=== PATIENT | female | born 1990 | race Caucasian/White ===

== ENCOUNTER → 2017-03-26 10:23 | Outpatient (CLI) | payer BC, SELFPAY ==
--- NOTE | 2017-03-26 10:30 | US_ITS ---
US OB /maternal detail: INDICATION: ITS.REASON: 20 wk+ Anatomy Scan ORDERING PHYSICIAN: Tato Johnson MD PATIENT AGE: 26 years TECHNIQUE: ultrasound transabdominal scanning. COMPARISON: No previous relevant studies. FINDINGS: Single viable intrauterine gestation. cephalic position. Placenta: posterior placenta grade 1. There is average amount fluid. The cervix appears satisfactory. Closed and measuring 3 cm in length. Complete survey performed and was unremarkable on the submitted images as in PACS. No discrete anomalies identified on survey imaging by technologist. Active fetus. Three-vessel cord with satisfactory umbilical cord insertion. 4- chamber heart noted. Survey of brain & ventricles. Face and neck survey unremarkable. Diaphragm and chest views unremarkable. Abdomen: Both kidneys noted and unremarkable. Stomach noted and satisfactory. Spine: Survey of the spine satisfactory with no anomalies identified nor imaged. Both arms and legs noted. Amniotic Fluid: Adequate. Maternal adnexa: No significant findings. Measurements: Average ultrasound age 20w4d. Gestational Age 20w3d. Estimated due date by ultrasound age 0608/09/2017. Estimated weight 350 grams. This is 43rd percentile based on last menstrual period BPD = 21w1d OFD = 21w0d HC = 20w2d AC = 20w1d FL = 20w5d Heart Rate = 147 bpm Cerebellum = 20w4d Humerus = 21w3d HC/AC is 1.20 (1.09-1.26). CI is 79% (70-86%). FL/BPD is 68%. FL/AC is 23%. IMPRESSION: There is a single live fetus present in cephalic presentation with an average ultrasound age of 20 weeks 4 days and estimated due date of 08/09/2017. There has been adequate progression compared to the previous exam of 01/16/2017. The fetus is active with No obvious anomalies. Please see above for detail
== END ==
PROVIDERS: PCP Family Medicine; Visit Provider Nurse Practitioner Obstetrics & Gynecology
DX: Z36.0 Encounter for antenatal screening for chromosomal anomalies (principal)
CPT/HCPCS: 76811

== ENCOUNTER → 2017-04-16 11:25 | Outpatient (CLI) | payer BC, SELFPAY ==
[2017-04-16 11:53] LABS: Basophils % 0.3 % (0.1-2.0); Eosinophils # 0.3 K/mm3 (0.0-0.4); Eosinophils % 2.4 % (0.1-12.0); Hematocrit 37.2 % (37.0-47.0); Hemoglobin 11.8 g/dL (12.2-16.2); Mean Corpuscular HGB Conc 31.8 g/dL (31.8-35.4); Mean Corpuscular Hemoglobin 28.9 pg (27.0-31.2); Mean Platelet Volume 7.8 fl (7.4-10.4); Monocytes # 0.7 K/mm3 (0.1-1.0); Monocytes % 6.1 % (1.7-9.3); Neutrophils # 8.8 K/mm3 (1.8-7.8); Neutrophils % 74.1 % (37.0-80.0); Platelet Count 276 K/mm3 (142-424); Red Blood Count 4.09 M/mm3 (4.20-5.40); Red Cell Distribution Width 13.1 % (11.5-17.5); White Blood Count 11.8 K/mm3 (4.8-10.8)
[2017-04-16 12:13] LABS: Anion Gap 7.6 mEq/L (5-15); Blood Urea Nitrogen 13 mg/dL (7-18); Carbon Dioxide 27 mmol/L (21.0-32.0); Chloride 104 mmol/L (98-107); Creatinine,Serum 0.79 mg/dL (0.55-1.02); Estimated Glomerular Filt Rate 87 ml/min (>60); Free Thyroxine Index 3.2 ug/dL (5.93-13.13); GFR (African American) 106 ML/MIN (>60); Glucose 59 mg/dL (74-106); Potassium 3.6 mmoL/L (3.5-5.1); Sodium 135 mmol/L (136-145); T4 (Thyroxine) 13.5 ug/dl (4.7-13.3); Thyroid Stimulating Hormone 4.64 uIU/ml (0.358-3.740); Triiodothryronine (T3) Uptake 24 % (31-39)
== END ==
PROVIDERS: Visit Provider Physician Assistant
DX: R00.2 Palpitations (principal); Z3A.22 22 weeks gestation of pregnancy
CPT/HCPCS: 36415; 80048; 84436; 84443; 84479; 85025

== ENCOUNTER → 2017-04-20 10:17 | Outpatient (CLI) | payer BC, SELFPAY ==
--- NOTE | 2017-04-20 10:21 | CA_ITS ---
PROCEDURE: 2-D M-mode and color Doppler study INDICATIONS FOR THE TEST: Chest pain COPD Heart Murmur Tobacco Smoking Palpitations+ Fatigue Syncope Edema Hypertension Diabetes Mellitus Rheumatic Fever SOB [place] Obesity Hyperlipidemia Family History HD Additional History 24 WEEKS PATIENT INFORMATION HEIGHT: 70 WEIGHT:190 GENDER: Female B/P:136/70 2-D/M-MODE INTERPRETATION: 2-D MEASUREMENTS OBSERVED VALUES IN CMS Right Ventricular Dimension (RVDd) 2.6 Interventricular Septum (Thickness)(IVsd) 1.0 Left Ventricular Internal Dimensions(LVIDd) 4.9 Left Ventricular Posterior Wall (Thickness)(LVPWd) 0.9 Aortic Root 2.5 Aortic Cusp Separation 1.9 Left Atrial Dimensions (LAD) 3.4 2D 1. Left atrium is normal size, left ventricle is normal size, there is preserved left ventricular systolic function, visually estimated ejection fraction 55% with no obvious regional wall motion abnormality. 2. The right atrium and right ventricle are normal size and contractility. 3. The aortic, mitral and tricuspid valve are structurally normal. 4. The pulmonic valve is poorly visualized. 5. No significant pericardial effusion noted. DOPPLER INTERROGATION: Doppler interrogation of the aortic, mitral and tricuspid valvular presence of mild mitral and tricuspid regurgitation of no hemodynamic significance. Diastolic parameters are inconclusive. CONCLUSION: 1. Normal left ventricular size, preserved left ventricular systolic function, visually estimated ejection fraction 55% with no obvious regional wall motion abnormality. 2. Mild mitral and tricuspid regurgitation of no hemodynamic significance 3. No significant pericardial effusion noted.
== END ==
PROVIDERS: PCP Family Medicine; Visit Provider Internal Medicine
DX: R00.2 Palpitations (principal); Z3A.22 22 weeks gestation of pregnancy
CPT/HCPCS: 93306

== ENCOUNTER → 2017-05-02 19:58 | Outpatient (REF) | payer BC, SELFPAY | LOC: LAB 19:58 | PROVIDERS: Visit Provider Nurse Practitioner Family ==

== ENCOUNTER 2017-07-11 10:45 | Outpatient (CLI) | payer BC, SELFPAY ==
[2017-07-11 11:00] VITALS: BP 108/61; PULSE 92; RESP 20; TEMP 36.9; O2SAT 99; BMI 30.8
[2017-07-11 11:13] LABS: Appearance,Urine CLEAR (Clear); Bilirubin,Urine Negative (Negative); Blood, Urine Negative (Negative); Color,Urine YELLOW (Yellow); Glucose,Urine (UA) Negative (Negative); Ketones,Urine Negative (Negative); Leukocyte Esterase,Urine Negative (Negative); Microscopic, Urine URINE MICROSCOPIC (MICROSCOPIC); Nitrate,Urine Negative (Negative); PH,Urine 7.5 (5.0-8.5); Protein,Urine Negative (Negative); Urobilinogen,Urine 0.2 EU/dl (0.2)
[2017-07-11 11:23] LABS: Bacteria,Urine Trace /lpf; Mucus,Urine Trace /lpf; Squamous Epithelial Cell,Urine 20-50 #/hpf (0-5)
== END 2017-07-11 12:00 | disposition home or self-care (01) ==
LOC: OBOUT 10:49 → OB 10:57
PROVIDERS: PCP Family Medicine; Visit Provider Obstetrics & Gynecology
DX: O26.893 Other specified pregnancy related conditions, third trimester (principal); Z3A.35 35 weeks gestation of pregnancy; R06.02 Shortness of breath
CPT/HCPCS: 59025; 81001

== ENCOUNTER → 2017-07-18 19:32 | Outpatient (REF) | payer BC, SELFPAY | LOC: LAB 19:32 | PROVIDERS: Visit Provider Nurse Practitioner Obstetrics & Gynecology | DX: Z34.90 Encounter for supervision of normal pregnancy, unspecified, unspecified trimester (principal) | CPT/HCPCS: 86403 ==

== ENCOUNTER 2017-08-06 05:16 | Inpatient (IN) ==
[2017-08-06 06:01] LABS: Basophils % 0.3 % (0.1-2.0); Eosinophils # 0.3 K/mm3 (0.0-0.4); Hematocrit 38.4 % (37.0-47.0); Hemoglobin 11.9 g/dL (12.2-16.2); Lymphocytes # 2.1 K/mm3 (0.7-4.5); Lymphocytes % 13.1 K/mm3 (10-50); Mean Corpuscular Hemoglobin 25.4 pg (27.0-31.2); Mean Corpuscular Volume 81.9 fl (81-99); Mean Platelet Volume 7.7 fl (7.4-10.4); Monocytes # 0.9 K/mm3 (0.1-1.0); Monocytes % 5.7 % (1.7-9.3); Neutrophils # 12.6 K/mm3 (1.8-7.8); Neutrophils % 78.9 % (37.0-80.0); Platelet Count 274 K/mm3 (142-424); Red Blood Count 4.69 M/mm3 (4.20-5.40); Red Cell Distribution Width 16.1 % (11.5-17.5); White Blood Count 15.9 K/mm3 (4.8-10.8)
[2017-08-06 06:15] LABS: Lymphocytes % 9 % (10-50); Monocytes % 2 % (2-9); Neutrophils % 78 % (42-76); Total Cells Counted 100
[2017-08-06 06:16] LABS: Polychromasia 1+
--- NOTE | 2017-08-06 08:18 | Progress Note ---
Labor Note - Subjective: Date: 08/06/17 Time: 07:30 irregular contractions - Objective: NST:: Reactive Contractions:: infrequent Cervical Dilation:: 2 Effacement:: 50% Station: -2 Membranes: articially ruptured - Fetus: Monitoring?: Yes monitoring type:: External - Assessment: Labor progressing?: Yes Cephalopelvic disproportion?: No Patient Problems: All Active Problems Hyperthyroidism (Acute) Anemia affecting in third trimester (Acute) Palpitations (Acute) (Acute) - Plan: Anesthesia for epidural?: No Continue to labor down?: Yes Plan for ?: No Continue to monitor?: Yes Start pushing?: No Comment:: She is 2+ cm and I ruptured her membranes. There is copious clear fluid.
--- NOTE | 2017-08-06 08:20 | History & Physical Report ---
OB - H&P: HPI Antepartum - History of Present Illness Chief complaint: Term History of present illness: She is a 26-year-old 1 para 0 who was 39 weeks gestational age. She having occasional contractions and pressure. As result of this she will be delivered. - History of Present Criteria for establishing EDC:: LMP confirmed by 1st trimester US care: good care Ultrasounds: normal 1st trimester US, normal mid trimester US Obstetrical complications: none Medical complications: none [facility] History I have reviewed the patient's past medical history: Yes Medical History: Reports:: Palpitations Denies:: Asthma, Diabetes Mellitus Type 1, Diabetes Mellitus Type 2, Internal Pacemaker Other Surgeries: Yes: No Previous Surgery. No: , Pacemaker Amputation: No Fractures: No - *Social History Smoking Status: Former smoker Tobacco Type: cigarettes Alcohol Intake: never Alcohol Intake Frequency:: other Substance Use Type: denies use Occupational Status: employed Household Members: spouse *Family Hx:: Thyroid Disorder Para: 0 Review of Systems - Review of Systems Review of systems:: pertinent systems reviewed and negative unless documented below Meds Home Medications Medication Instructions Recorded Confirmed Type loratadine 10 mg tablet 10 mg PO DAILY tab 04/16/17 History 1 tab PO QHS 05/08/17 History vitamin,calcium,rwwqdrsi-yxfk-schrm acid tablet Allergies Allergy/AdvReac Type Severity Reaction Status Date / Time cephalexin [From Keflex] AdvReac Verified 07/31/17 08:20 OB - H&P: Exam - Physical Exam Vital signs: Temp Pulse Resp BP Pulse Ox 98.4 F 109 H 18 119/76 98 08/06/17 06:46 08/06/17 06:46 08/06/17 06:46 08/06/17 06:46 08/06/17 06:46 - Constitutional no acute distress - Routine HEENT Exam Head: Present: normocephalic - Routine Neck Exam Present: supple - Routine Respiratory Exam Comments: No respiratory distress - Routine Exam Comments: Her cervix is 2 cm 50% Station -2 OB - Results - Labs Labs: Short CBC 08/06/17 Range/Units 05:50 WBC 15.9 H (4.8-10.8) K/mm3 Hgb 11.9 L (12.2-16.2) g/dL Hct 38.4 (37.0-47.0) % Plt Count 274 (142-424) K/mm3 OB - A/P Antepartum (1) Normal delivery Current visit: Yes Status: Acute (2) Anemia affecting in third trimester Problem details: 12.20 Current visit: No Status: Acute - Additional Plan Planning to breastfeed?: Yes Plan: induction Additional Information:: She is 39 weeks and feeling a lot of pressure so we have elected to induce her labor.
--- NOTE | 2017-08-06 09:38 | Progress Note ---
Labor Note - Subjective: Date: 08/06/17 Time: 09:37 regular contraction - Objective: NST:: Reactive Contractions:: every 2-3 minutes Cervical Dilation:: 2 Effacement:: 75% Station: -2 Membranes: articially ruptured - Fetus: Monitoring?: Yes monitoring type:: Internal and External Comment:: I inserted and IUPC - Assessment: Labor progressing?: Yes Cephalopelvic disproportion?: No Patient Problems: All Active Problems Normal delivery (Acute) Hyperthyroidism (Acute) Anemia affecting in third trimester (Acute) Palpitations (Acute) (Acute) - Plan: Anesthesia for epidural?: No Continue to labor down?: Yes Plan for ?: No Continue to monitor?: Yes Start pushing?: No
[2017-08-06 12:02] LABS: Microscopic, Urine URINE MICROSCOPIC (MICROSCOPIC)
[2017-08-06 12:04] LABS: Appearance,Urine SL CLOUDY (Clear); Bilirubin,Urine Negative (Negative); Blood, Urine Negative (Negative); Color,Urine YELLOW (Yellow); Glucose,Urine (UA) Negative (Negative); Ketones,Urine Negative (Negative); Leukocyte Esterase,Urine Negative (Negative); Protein,Urine Negative (Negative); Specific Gravity, Urine 1.015 (1.005-1.030); Urobilinogen,Urine 0.2 EU/dl (0.2)
[2017-08-06 12:26] LABS: WBC,Urine Occasional #/hpf (0-3)
[2017-08-06 12:27] LABS: Amorphous Sediment,Urine 1+ /lpf; Bacteria,Urine 1+ /lpf; Squamous Epithelial Cell,Urine Occasional #/hpf (0-5)
--- NOTE | 2017-08-06 13:49 | Progress Note ---
Labor Note - Subjective: Date: 08/06/17 Time: 13:48 regular contraction - Objective: NST:: Reactive Contractions:: every 2-3 minutes Cervical Dilation:: 3 Effacement:: 90% Station: -2 Membranes: articially ruptured - Fetus: Monitoring?: Yes monitoring type:: Internal and External - Assessment: Labor progressing?: Yes Cephalopelvic disproportion?: No Patient Problems: All Active Problems Normal delivery (Acute) Hyperthyroidism (Acute) Anemia affecting in third trimester (Acute) Palpitations (Acute) (Acute) - Plan: Anesthesia for epidural?: Yes Continue to labor down?: Yes Plan for ?: No Continue to monitor?: Yes Start pushing?: No Comment:: She seems to be doing well. The nonstress test is reactive. She is having regular contractions. She has changed her cervix from 2-3. We will continue with expectant management.
--- NOTE | 2017-08-06 14:44 | Progress Note ---
[facility] Anesthesia Checklist - Patient Identification Patient Identification: Arm Band, Verbal (Name & ) - Structural Data Admitted From: Home Planned Operative Procedure/s: Labor Epidural Consent for Planned Operative Procedure(s) Verified: Yes Verified Documents: Surgical Consent, History and Physical - Additional verifications Patient : Yes Anesthesia Reactions: No - Airway Assessment C-Spine Mobility Assessed: Yes TMJ Mobility Assessed: Yes Dentition: Good Dentition - Neurological Assessment Level of Consciousness: Awake Hx Seizures: No Numbness or tingling in extremities: No - Anesthesia Plan Anesthesia Risk discussed: Yes Anesthesia Plan: Verified ASA Class: II Anesthesia Type: Epidural [facility] Anesthesia HX I have reviewed the patient's past medical history: Yes Medical History: Reports:: Gastroesophageal Reflux Disease(GERD), Palpitations Denies:: Asthma, Diabetes Mellitus Type 1, Diabetes Mellitus Type 2, Internal Pacemaker Other Surgeries: Yes: No Previous Surgery. No: , Pacemaker Amputation: No Fractures: No *Family Hx:: Thyroid Disorder
--- NOTE | 2017-08-06 15:55 | Progress Note ---
Labor Note - Subjective: Date: 08/06/17 Time: 15:54 regular contraction - Objective: NST:: Reactive Contractions:: every 2-3 minutes Cervical Dilation:: 3 Effacement:: 90% Station: -2 Membranes: articially ruptured - Fetus: Monitoring?: Yes monitoring type:: Internal and External - Assessment: Labor progressing?: No Cephalopelvic disproportion?: No Patient Problems: All Active Problems Normal delivery (Acute) Hyperthyroidism (Acute) Anemia affecting in third trimester (Acute) Palpitations (Acute) (Acute) - Plan: Anesthesia for epidural?: Yes Continue to labor down?: Yes Plan for ?: No Continue to monitor?: Yes Start pushing?: No Comment:: She really has not made much progress over the last couple of hours. We will see how she does over the next few hours. If she does make any further progress we will diagnose fetopelvic disproportion and make arranges for her to have a section.
--- NOTE | 2017-08-06 18:14 | Progress Note ---
Labor Note - Subjective: Date: 08/06/17 Time: 18:13 regular contraction - Objective: NST:: Reactive Contractions:: every 2-3 minutes Cervical Dilation:: 3-4 Effacement:: 90% Station: -1 Membranes: articially ruptured - Fetus: Monitoring?: Yes monitoring type:: Internal and External - Assessment: Labor progressing?: Yes Cephalopelvic disproportion?: No Patient Problems: All Active Problems Normal delivery (Acute) Hyperthyroidism (Acute) Anemia affecting in third trimester (Acute) Palpitations (Acute) (Acute) - Plan: Anesthesia for epidural?: Yes Continue to labor down?: Yes Plan for ?: No Continue to monitor?: Yes Start pushing?: No Comment:: The baby's head is come down a little more. The cervix is changed from 3-4 cm. The cervix is thinned out. We will continue to induce her. If she does not progress beyond this we will consider a .
--- NOTE | 2017-08-06 20:11 | Progress Note ---
Labor Note - Subjective: Date: 08/06/17 Time: 20:10 regular contraction - Objective: NST:: Reactive Contractions:: every 2-3 minutes Cervical Dilation:: 3-4 Effacement:: 90% Station: -1 Membranes: articially ruptured - Fetus: Monitoring?: Yes monitoring type:: External - Assessment: Labor progressing?: Yes Cephalopelvic disproportion?: No Patient Problems: All Active Problems Normal delivery (Acute) Hyperthyroidism (Acute) Anemia affecting in third trimester (Acute) Palpitations (Acute) (Acute) - Plan: Anesthesia for epidural?: Yes Continue to labor down?: Yes Plan for ?: No Continue to monitor?: Yes Start pushing?: No
[2017-08-06 20:14] LABS: Anion Gap 13.7 mEq/L (5-15); Calcium 8.1 mg/dL (8.5-10.1); Potassium 3.7 mmoL/L (3.5-5.1)
--- NOTE | 2017-08-06 21:40 | Operative Note ---
Date of procedure: 08/06/17 Pre-op Diagnosis:: Term , pelvic disproportion Post-op Diagnosis:: In , pelvic disproportion, uterine atony Procedure performed:: Primary lower segment transverse section and B Kelley suture Surgeon:: Tato Johnson MD Supervisor Accounting Clerks(s):: Dr. Ford PODIATRIC FOOT AND ANKLE SPECIALIST:: Joseph Aguilar Anesthesia: spinal Estimated blood loss (mL): 600 Clinical Note:: She is a 26-year-old 1 para 0 who was 39 weeks gestational age. She came in having a few contractions we elected to augment her labor. She was started on IV oxytocin and had her membranes ruptured. She really failed to progress beyond 3-4 cm. As result of that pelvic disproportion was diagnosed and she was taken for a primary lower segment transverse section. The risks and benefits of surgery were discussed with the patient and her prior to surgery. Operative findings:: She delivered a liveborn male child at 9:08 PM on the evening of August 06, 2017. The baby had Apgars of 9 at 1 minute and 10 at 5 minutes. PH of 7.42. Ovaries and tubes appeared normal. Umbilical cord appeared normal. Operative note:: She was taken to the operating room where epidural anesthesia was found be adequate. She was prepped and draped in normal sterile fashion in the supine position with a leftward tilt. A Vasquez catheter was in the bladder. A Pfannenstiel skin incision was made with knife then carried through to the underlying layer of fascia with cautery. The fascia was opened in the midline with cautery and extended laterally using Saeed scissors. Bernadette clamps were applied to the superior aspect of the fascial incision which was tented up and the underlying rectus muscles dissected off using cautery. The Bernadette clamps were then applied to the inferior aspect of the fascial incision which in a similar fashion was tented up and the underlying rectus muscles dissected off using cautery. The rectus muscles were then in the midline, the peritoneum identified, and entered sharply with Metzenbaum scissors. This incision was then extended superiorly and inferiorly with cautery. We had good visualization of the bladder inferiorly. The bladder peritoneum was then opened in the midline and extended laterally using Metzenbaum scissors. A bladder flap was created digitally. The lower blade of the Lamar was inserted so as to push the bladder out of the way. Transverse incision was made through the uterine muscle to the amnion. This incision was then extended laterally using fingers traction. The amnion was entered sharply with knife. The infant's head was then delivered atraumatically. This was followed by the anterior shoulder and the rest of the 's body atraumatically. The oropharynx and nasopharynx were bulb suctioned. The infant was then handed off to Dr. degroot who assigned Apgars of 9 at 1 minute and 10 at 5 minutes. We then obtained cord blood as well as cord pH. PH 7.42. Using gentle traction on the cord and countertraction on the fundus I was able to easily deliver the placenta intact. It had a normal three-vessel cord. The uterus was then cleared of clots and debris and exteriorized from the abdominal cavity. The uterine incision was then closed using running 0 Vicryl suture in a locked fashion. A second layer of the same suture was used to imbricate the first layer. The bladder peritoneum was then closed using running 2-0 Vicryl suture in a locked fashion. The uterus is quite boggy so I elected to place a B Kelley suture. I took a large bite anteriorly and then went over the posterior aspect of the uterus. I took 2 bites posteriorly and then came back over the anterior aspect of the uterus. I then took another bite anteriorly. The suture was then cinched down making sure that the suture was nowhere near the uterine cornua where the tubes started. The gutters and cul-de-sac were then cleared of clots and debris and the uterus was returned the abdominal cavity. Once again hemostasis was assured. The peritoneum was grasped with Karissa clamps and closed using running 2-0 Vicryl suture. The rectus muscles were then reapproximated using running 0 Vicryl suture. The fascia was closed using running #1 Vicryl suture. The subcutaneous tissues were then irrigated with warm water followed by closure Gene's fascia using running 2-0 Monocryl suture. The skin was closed with cesar. The skin was then cleaned with Hibiclens. Sterile dressings were applied. She tolerated the procedure well and was taken to the recovery room in excellent condition. All sponges minute and needle counts were correct. Estimate a blood loss was approximately 600 mL. Condition: stable Disposition: PACU Specimens:: None Complications:: None
--- NOTE | 2017-08-06 21:52 | Progress Note ---
[facility] Anesthesia Record Part I Intake, IV Amount: 850 Estimated blood loss (mL): 600 Urine output (mL): 50 Blood Products used (#): none Blood Pressure: 155/90 SaO2: 100 Pulse Rate: 103 Respiratory Rate: 20 Temperature: 97.4 F Patient is:: Awake, Stable Stable to PACU at:: 21:48
--- NOTE | 2017-08-06 21:52 | Progress Note ---
[facility] Anesthesia Record Part II Discharge Time: 22:18 Destination: Obstetric Gynecology Dept PACU nurse assessment reviewed?: Yes Patient Condition:: Good Anesthesia Complications:: None
[2017-08-07 06:03] LABS: Basophils % 0.1 % (0.1-2.0); Eosinophils # 0.1 K/mm3 (0.0-0.4); Eosinophils % 0.5 % (0.1-12.0); Hemoglobin 10.9 g/dL (12.2-16.2); Lymphocytes # 1.7 K/mm3 (0.7-4.5); Lymphocytes % 11.2 K/mm3 (10-50); Mean Corpuscular HGB Conc 30.1 g/dL (31.8-35.4); Mean Corpuscular Hemoglobin 24.7 pg (27.0-31.2); Mean Corpuscular Volume 82.1 fl (81-99); Monocytes # 0.9 K/mm3 (0.1-1.0); Monocytes % 5.9 % (1.7-9.3); Neutrophils # 12.8 K/mm3 (1.8-7.8); Neutrophils % 82.3 % (37.0-80.0); Platelet Count 231 K/mm3 (142-424); Red Blood Count 4.39 M/mm3 (4.20-5.40); Red Cell Distribution Width 16.1 % (11.5-17.5); White Blood Count 15.5 K/mm3 (4.8-10.8)
--- NOTE | 2017-08-07 07:29 | Pharmacy Consult Notes ---
[facility] Pharmacy VTE Monitoring - Patient Demographics Admission date: 08/06/17 Report Date: 08/07/17 Time: 07:29 Allergies/Adverse Reactions: Patient Allergies cephalexin [From Keflex] Adverse Reaction (Verified 07/31/17 08:20) Height: 1.78 m Weight: 102.058 kg Patient Problems: Current Active Problems Normal delivery (Acute) - VTE Risk Labs: VTE Related Lab Results Hgb 10.9 g/dL (12.2-16.2) L 08/07/17 05:20 Hct 36.0 % (37.0-47.0) L 08/07/17 05:20 Plt Count 231 K/mm3 (142-424) 08/07/17 05:20 BUN 10 mg/dL (7-18) 08/06/17 19:46 Creatinine 0.65 mg/dL (0.55-1.02) 08/06/17 19:46 Estimated Creat Clear 209 mL/min (0-300) 08/06/17 19:46 - Prophylaxis VTE Prophylaxis Ordered?: Yes Types of VTE Prophylaxis: IPCS Knee High Location of Applied Device: Bilateral Lower Extremeties - VTE Diagnosis Confirmed Treatment or plan recommended: Continue Current Treatment
--- NOTE | 2017-08-07 08:14 | Progress Note ---
Internal Medicine - PN: Subj *Date: 08/07/17 *Time: 08:13 Interval history: She is doing well this morning. She is eating and drinking and ambulating. She is breast-feeding. Her lochia is normal. Her incision is clean and dry. Exam Vital signs and Labs for Last 24 Hours: Temp Pulse Resp BP Pulse Ox 98.9 F 100 H 15 147/96 100 08/06/17 22:24 08/06/17 22:24 08/06/17 22:24 08/06/17 22:24 08/06/17 22:24 Laboratory Results - last 24 hr 08/06/17 05:50: Blood Type A Positive, Antibody Screen Negative 08/06/17 11:35: Urine Color Yellow, Urine Appearance Sl cloudy, Urine pH 7.0, Ur Specific [place] 1.015, Urine Protein Negative, Urine Glucose (UA) Negative, Urine Ketones Negative, Urine Blood Negative, Urine Nitrate Negative, Urine Bilirubin Negative, Urine Urobilinogen 0.2, Ur Leukocyte Esterase Negative, Urine RBC None, Urine WBC Occasional, Ur Squamous Epith Cells Occasional, Amorphous Sediment 1+, Urine Bacteria 1+ 08/06/17 19:46: Sodium 137, Potassium 3.7, Chloride 104, Carbon Dioxide 23, Anion Gap 13.7, BUN 10, Creatinine 0.65, Estimated Creat Clear 209, Estimated GFR 109, Est GFR ( Amer) 132, Glucose 95, Calcium 8.1 L 08/06/17 21:22: Cord ABG pH 7.42 08/07/17 05:20: WBC 15.5 H, RBC 4.39, Hgb 10.9 L, Hct 36.0 L, MCV 82.1, MCH 24.7 L, MCHC 30.1 L, RDW 16.1, Plt Count 231, MPV 8.0, Neut % (Auto) 82.3 H, Lymph % (Auto) 11.2, Person % (Auto) 5.9, Eos % (Auto) 0.5, Baso % (Auto) 0.1, Neut # (Auto) 12.8 H, Lymph # (Auto) 1.7, Person # (Auto) 0.9, Eos # (Auto) 0.1, Baso # (Auto) 0.0 I & O for Last 24 hours: Intake & Output 0608/05/17 08/06/17 08/07/17 11:59 11:59 11:59 11:59 Intake Total 850 / 850 Output Total 450 / 450 Balance 400 / 400 Weight 225 lb 225 lb - Constitutional no acute distress Assessment and Plan (1) Normal delivery Current visit: Yes Status: Acute Category: Medical Code(s): O80 - Encounter for full-term uncomplicated delivery (2) Anemia affecting in third trimester Problem details: 12.20 Current visit: No Status: Acute Category: Medical Code(s): O99.013 - Anemia complicating , third trimester (3) Fetopelvic disproportion, delivered Current visit: Yes Status: Acute Category: Medical Code(s): O33.9 - Maternal care for disproportion, unspecified - Assessment and plan all Dx Assessment and Plan for all problems:: She is doing well this morning. And we will plan to send her home in 48 hours.
[2017-08-07 08:17] LABS: Lymphocytes % 19 % (10-50); Monocytes % 5 % (2-9); Neutrophils % 76 % (42-76); Total Cells Counted 100
[2017-08-07 08:18] LABS: RBC Morphology Normal
--- NOTE | 2017-08-08 08:21 | Progress Note ---
Internal Medicine - PN: Subj *Date: 08/08/17 *Time: 08:20 Interval history: She is doing well this morning. She is eating and drinking and ambulating. She is breast-feeding. Her lochia is normal. Her incision is clean and dry. Exam Vital signs and Labs for Last 24 Hours: Temp Pulse Resp BP Pulse Ox 98.9 F 100 H 18 147/96 100 08/06/17 22:24 08/06/17 22:24 08/07/17 15:32 08/06/17 22:24 08/06/17 22:24 I & O for Last 24 hours: Intake & Output 08/05/17 08/06/17 08/07/17 08/08/17 11:59 11:59 11:59 11:59 Intake Total 850 / 850 Output Total 450 / 450 Balance 400 / 400 Weight 225 lb 225 lb - Constitutional no acute distress Assessment and Plan (1) Normal delivery Current visit: Yes Status: Acute Category: Medical Code(s): O80 - Encounter for full-term uncomplicated delivery (2) Anemia affecting in third trimester Problem details: 11. Current visit: No Status: Acute Category: Medical Code(s): O99.013 - Anemia complicating , third trimester (3) Fetopelvic disproportion, delivered Current visit: Yes Status: Acute Category: Medical Code(s): O33.9 - Maternal care for disproportion, unspecified - Assessment and plan all Dx Assessment and Plan for all problems:: She is doing well this morning. We will plan to send her home tomorrow.
--- NOTE | 2017-08-08 08:24 | Discharge Summary ---
General - General Admission date:: 08/06/17 Discharge date: 08/09/17 HPI HPI: She is a 26-year-old 1 now para 1 who is 39+ weeks gestational age. She was having pressure and discomfort so we elected to augment her labor. Hospital Course Hospital Course: She was started on the oxytocin had her membranes ruptured. She progressed to 3 -4 cm but really failed to progress beyond this point, despite adequate contractions all day long. As result of that she was taken for a primary lower segment transverse section for pelvic disproportion. She delivered by section liveborn male child at 9:08 PM in the evening of August 06, 2017. The baby weighed 8 lbs. 15 oz. and was 20-1/4 inches long. He had Apgars of 9 at 1 minute and 10 at 5 minutes. She has done well and has remained afebrile throughout her hospitalization. She is eating and drinking and ambulating. She is breast- feeding. She has a positive blood, she is rubella immune and was group B streptococcus negative. 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 Nunn. She is discharged home to follow-up with me in approximately 2 weeks. Objective Vital signs: Temp Pulse Resp BP Pulse Ox 98.9 F 100 H 18 147/96 100 08/06/17 22:24 08/06/17 22:24 08/07/17 15:32 08/06/17 22:24 08/06/17 22:24 no acute distress DS: Diagnosis - Discharge Diagnosis (1) Normal delivery Status: Acute (2) Anemia affecting in third trimester Status: Acute Problem details: 11.8 (3) Fetopelvic disproportion, delivered Status: Acute Discharge Plan - Patient Discharge Instructions ACTIVITY: No heavy lifting DIET: continue same diet - Follow up Plan Disposition: Home, Self-Nursing Home Medications: Home Medications Medication Instructions Recorded Confirmed Type loratadine 10 mg tablet 10 mg PO DAILY tab 04/16/17 08/06/17 History 1 tab PO QHS 05/08/17 08/06/17 History vitamin,calcium,ikmsirta-bzlj-uflkt acid tablet ferrous sulfate 325 mg (65 mg 325 mg PO DAILY 08/06/17 08/06/17 History iron) tablet,delayed release raNITIdine HCl [Ranitidine HCl] 150 mg PO BID 06/25/18 06/25/18 History Prescriptions/Medication Reconciliation: New Oxycodone HCl/Acetaminophen [Percocet 5/325mg tablet] 1 - 2 tab PO Q4- 6H PRN #30 tab PRN Reason: Severe Pain Continue vitamin,calcium,kjqwdcsm-huew-wtnub acid tablet 1 tab PO QHS loratadine 10 mg tablet 10 mg PO DAILY tab raNITIdine HCl [Ranitidine HCl] 150 mg PO BID No Action ferrous sulfate 325 mg (65 mg iron) tablet,delayed release 325 mg PO DAILY
== END 2017-08-09 11:06 | disposition home or self-care (01) ==
LOC: OB 05:16
PROVIDERS: ADMIT Obstetrics & Gynecology; ATTEND Nurse Practitioner Obstetrics & Gynecology

== ENCOUNTER → 2018-07-03 12:04 | Outpatient (CLI) | payer SELFPAY ==
--- NOTE | 2018-07-03 12:11 | XR_ITS ---
XR chest 2V HISTORY: Bronchitis, severe left-sided chest pain ITS.REASON: BRONCHITIS ORDERING PHYSICIAN: NADREW Gutiérrez PATIENT AGE: 27 years COMPARISON: None FINDINGS: The cardiomediastinal silhouette and pulmonary vascularity are within normal limits. The lungs are clear without infiltrates, suspicious nodules, or pleural effusions. No acute bony abnormalities. IMPRESSION: Negative chest, no acute finding
== END ==
PROVIDERS: PCP Family Medicine; Visit Provider Physician Assistant
DX: J40 Bronchitis, not specified as acute or chronic (principal)
CPT/HCPCS: 71046

== ENCOUNTER → 2019-04-09 14:04 | Outpatient (CLI) | payer OTHER, SELFPAY ==
[2019-04-09 14:59] LABS: Basophils # 0.1 K/mm3 (0-0.2); Basophils % 0.9 % (0.1-2.0); Eosinophils # 0.4 K/mm3 (0.0-0.4); Eosinophils % 5.1 % (0.1-12.0); Hemoglobin 12.7 g/dL (12.2-16.2); Lymphocytes # 2.5 K/mm3 (0.7-4.5); Lymphocytes % 29.9 % (10-50); Mean Corpuscular HGB Conc 31.9 g/dL (31.8-35.4); Mean Corpuscular Volume 84.6 fl (81-99); Monocytes # 0.4 K/mm3 (0.1-1.0); Monocytes % 5.2 % (1.7-9.3); Neutrophils # 4.8 K/mm3 (1.8-7.8); Neutrophils % 58.8 % (37.0-80.0); Platelet Count 339 K/mm3 (142-424); Red Blood Count 4.73 M/mm3 (4.20-5.40); White Blood Count 8.2 K/mm3 (4.8-10.8)
[2019-04-09 15:44] LABS: Chloride 101 mmol/L (98-107); Potassium 4.3 mmoL/L (3.5-5.1); Sodium 141 mmol/L (136-145)
[2019-04-09 15:46] LABS: Alanine Aminotransferase 14 U/L (12-78); Alkaline Phosphatase 59 U/L (38-126); Aspartate Amino Transferase 22 U/L (14-36); Bilirubin,Total 0.2 mg/dl (0.2-1.3); Blood Urea Nitrogen 16 mg/dl (7-17); Estimated Glomerular Filt Rate 74 ml/min (>60); GFR (African American) 90 ML/MIN (>60)
[2019-04-09 15:47] LABS: Albumin Level 4.2 g/dl (3.5-5.0); Albumin/Globulin Ratio 1.3 (1.1-1.8); Anion Gap 13.3 mEq/L (5-15); Calcium 9.5 mg/dl (8.4-10.2); Carbon Dioxide 31 mmol/L (22.0-30.0); Globulin 3.2 g/dL (1.3-3.2); Glucose 69 mg/dl (74-100); Total Protein,Serum 7.4 g/dl (6.3-8.2)
[2019-04-09 16:04] LABS: Free T4 (Free Thyroxine) 0.84 ng/dl (0.78-2.19)
[2019-04-11 10:15] LABS: Vitamin B12 545 pg/mL (232-1245); Vitamin D 25 Hydroxy 30.3 ng/mL (30.0-100.0)
== END ==
PROVIDERS: Visit Provider Physician Assistant
DX: J02.9 Acute pharyngitis, unspecified (principal); R53.83 Other fatigue
CPT/HCPCS: 36415; 80053; 82607; 82652; 84439; 84443; 85025

== ENCOUNTER 2019-06-24 13:20 | Outpatient (CLI) | payer OTHER, SELFPAY ==
[2019-06-24 13:26] VITALS: BMI 26.6
== END 2019-06-24 13:31 | disposition home or self-care (01) ==
PROVIDERS: PCP Family Medicine; Visit Provider Nurse Practitioner
DX: G43.909 Migraine, unspecified, not intractable, without status migrainosus (principal)

== ENCOUNTER → 2019-10-15 14:41 | Outpatient (CLI) | payer OTHER, SELFPAY ==
[2019-10-15 15:27] LABS: Basophils # 0.1 K/mm3 (0-0.2); Basophils % 0.9 % (0.1-2.0); Eosinophils # 0.5 K/mm3 (0.0-0.4); Eosinophils % 5.5 % (0.1-12.0); Hematocrit 42.2 % (37.0-47.0); Lymphocytes # 2.8 K/mm3 (0.7-4.5); Lymphocytes % 28.7 % (10-50); Mean Corpuscular HGB Conc 33.1 g/dL (31.8-35.4); Mean Corpuscular Hemoglobin 27.5 pg (27.0-31.2); Mean Corpuscular Volume 83.3 fl (81-99); Mean Platelet Volume 7.5 fl (7.4-10.4); Monocytes # 0.5 K/mm3 (0.1-1.0); Monocytes % 5.1 % (1.7-9.3); Neutrophils # 5.9 K/mm3 (1.8-7.8); Neutrophils % 59.8 % (37.0-80.0); Platelet Count 292 K/mm3 (142-424); Red Blood Count 5.07 M/mm3 (4.20-5.40); Red Cell Distribution Width 13.3 % (11.5-17.5); White Blood Count 9.9 K/mm3 (4.8-10.8)
[2019-10-15 15:52] LABS: Strep Scrn Group A (Rapid) Negative (Negative)
[2019-10-17 13:22] LABS: Covid-19 Nasal PCR Sendout Lex NOT DETECTED
== END ==
PROVIDERS: PCP Family Medicine; Visit Provider Nurse Practitioner Family
DX: Z03.818 Encounter for observation for suspected exposure to other biological agents ruled out (principal)
CPT/HCPCS: 36415; 85025; 87430; U0004

== ENCOUNTER → 2019-12-08 11:12 | Outpatient (CLI) | payer OTHER, SELFPAY ==
--- NOTE | 2019-12-08 11:16 | US_ITS ---
PROCEDURE: US OB TRANSVAGINAL CLINICAL INDICATION: Confirm dates, viability, rule out etopic,RLQP COMPARISON: US OBFEMAT US OB /maternal detail from 03/26/2017 FINDINGS: The uterus is retroverted. There is a small gestational sac present with a yolk sac noted. No obvious pole is evident at this time. The adnexa are unremarkable. No cul-de-sac fluid. IMPRESSION: There is an intrauterine gestational sac with yolk sac but no obvious pole. Cannot confirm viability at this time. Recommend follow-up ultrasound as well as correlation with beta HCG. Retroverted uterus Dictated by: Mark Mancilla MD 12/08/2019 16:20 Mark Mancilla MD in [facility] 12/08/2019 16:20
[2019-12-08 13:13] LABS: HCG,Quantitative 9349 mIU/ml (0-5.42)
== END ==
PROVIDERS: PCP Family Medicine; Visit Provider Nurse Practitioner Obstetrics & Gynecology
DX: O26.841 Uterine size-date discrepancy, first trimester (principal); R10.9 Unspecified abdominal pain; Z34.90 Encounter for supervision of normal pregnancy, unspecified, unspecified trimester
CPT/HCPCS: 36415; 76817; 84702

== ENCOUNTER → 2019-12-11 12:07 | Outpatient (CLI) | payer OTHER, SELFPAY ==
[2019-12-11 12:57] LABS: HCG,Quantitative 13876 mIU/ml (0-5.42)
== END ==
PROVIDERS: Visit Provider Nurse Practitioner Obstetrics & Gynecology
DX: Z34.90 Encounter for supervision of normal pregnancy, unspecified, unspecified trimester (principal)
CPT/HCPCS: 36415; 84702

== ENCOUNTER → 2019-12-15 15:00 | Outpatient (CLI) | payer OTHER, SELFPAY ==
--- NOTE | 2019-12-15 15:01 | US_ITS ---
PROCEDURE: US OB <= 14 WEEKS FETUS CLINICAL INDICATION: dates and viability COMPARISON: US US OB TRANSVAGINAL from 12/08/2019 FINDINGS: An intrauterine gestational sac is present with a pole with a crown-rump length of 0.67cm correlating to gestational age of 6weeks 4days. Heart flicker is felt to be present however definite heart rate is difficult to assess. Recommend follow-up exam to confirm viability. IMPRESSION: Live IUP at 6 weeks 4 days. Heart tones are difficult to evaluate. Heart flicker is felt to be present. Recommend follow-up exam for confirmation. Estimated due date by Ultrasound is 08/05/2020 Dictated by: Mark Mancilla MD 12/15/2019 18:14 Mark Mancilla MD in [facility] 12/15/2019 18:14
[2019-12-16 10:35] LABS: Adenovirus,PCR Not Detected (NotDetected); Bordetella Pertussis Not Detected (NotDetected); Chlamydophila Pneumoniae, PCR Not Detected (NotDetected); Coronavirus 19, PCR Not Detected (NotDetected); Coronavirus 229E Not Detected (NotDetected); Coronavirus NL63 Not Detected (NotDetected); Coronavirus OC43 Not Detected (NotDetected); Coronovirus HKU1,PCR Not Detected (NotDetected); Human Metapneumovirus Not Detected (NotDetected); Influenza A, PCR Not Detected (NotDetected); Influenza AH1, 2009 Not Detected (NotDetected); Influenza AH1, PCR Not Detected (NotDetected); Influenza AH3,PCR Not Detected (NotDetected); Influenza B, PCR Not Detected (NotDetected); Mycoplasma Pneumoniae, PCR Not Detected (NotDetected); Parainfluenza 1, PCR Not Detected (NotDetected); Parainfluenza 2, PCR Not Detected (NotDetected); Parainfluenza 3, PCR Not Detected (NotDetected); Parainfluenza 4, PCR Not Detected (NotDetected); Respiratory Syncytial Virus Not Detected (NotDetected); Rhinovirus/Enterovirus Not Detected (NotDetected)
== END ==
LOC: RAD 15:55 → COVID.OUT 15:56
PROVIDERS: PCP Family Medicine; Visit Provider Nurse Practitioner Obstetrics & Gynecology
DX: Z34.90 Encounter for supervision of normal pregnancy, unspecified, unspecified trimester (principal)
CPT/HCPCS: 76801; 87581; 87633; 87798; U0003; U0004

== ENCOUNTER → 2019-12-25 13:27 | Outpatient (CLI) | payer OTHER, SELFPAY ==
--- NOTE | 2019-12-25 13:27 | US_ITS ---
PROCEDURE: US OB <= 14 WEEKS FETUS CLINICAL INDICATION: Confirm viability and confirmation of COMPARISON: US US OB <= 14 WEEKS FETUS from 12/15/2019 FINDINGS: An intrauterine gestational sac is present with a pole with a crown-rump length of 0.47cm correlating to gestational age of 6weeks 2days. No adnexal mass or cul-de-sac fluid. IMPRESSION: There is an intrauterine gestational sac with a pole which measures 0.4 cm correlating to gestational age of 6 weeks and 2 days. Cardiac activity however is not identified. Cannot confirm viability at this time. Continued follow-up is suggested. Estimated due date by Ultrasound is 08/17/2020 based on today's measurements. The measurements previously estimated a due date of 08/05/2020. Dictated by: Mark Mancilla MD 12/25/2019 18:15 Mark Mancilla MD in [facility] 12/25/2019 18:15
== END ==
PROVIDERS: PCP Family Medicine; Visit Provider Nurse Practitioner Obstetrics & Gynecology
DX: O26.841 Uterine size-date discrepancy, first trimester (principal)
CPT/HCPCS: 76801

== ENCOUNTER → 2020-01-14 10:39 | Outpatient (CLI) | payer OTHER, SELFPAY ==
--- NOTE | 2020-01-14 10:44 | XR_ITS ---
PROCEDURE: XR CHEST PORTABLE CLINICAL HISTORY: COVID OUTPATIENT COMPARISON: No exams were available for comparison FINDINGS: The cardiomediastinal silhouette and pulmonary vascularity are within normal limits. The lungs are clear without infiltrates, suspicious nodules, or pleural effusions. No acute bony abnormalities. IMPRESSION: No acute findings. Dictated by: Mark Mancilla MD 01/14/2020 15:30 Mark Mancilla MD in [facility] 01/14/2020 15:30
[2020-01-14 12:45] LABS: Basophils # 0.1 K/mm3 (0-0.2); Basophils % 1.1 % (0.1-2.0); Eosinophils # 0.6 K/mm3 (0.0-0.4); Eosinophils % 6.8 % (0.1-12.0); Hemoglobin 13.3 g/dL (12.2-16.2); Lymphocytes # 2.8 K/mm3 (0.7-4.5); Lymphocytes % 31.4 % (10-50); Mean Corpuscular HGB Conc 31.7 g/dL (31.8-35.4); Mean Corpuscular Hemoglobin 27.4 pg (27.0-31.2); Mean Corpuscular Volume 86.3 fl (81-99); Monocytes # 0.5 K/mm3 (0.1-1.0); Monocytes % 5.3 % (1.7-9.3); Neutrophils # 4.9 K/mm3 (1.8-7.8); Neutrophils % 55.5 % (37.0-80.0); Platelet Count 323 K/mm3 (142-424); Red Blood Count 4.87 M/mm3 (4.20-5.40); Red Cell Distribution Width 13.2 % (11.5-17.5); White Blood Count 8.8 K/mm3 (4.8-10.8)
[2020-01-14 13:03] LABS: Strep Scrn Group A (Rapid) Negative (Negative)
[2020-01-15 10:02] LABS: Covid-19 Nasal PCR Sendout Lex NOT DETECTED
== END ==
PROVIDERS: PCP Family Medicine; Visit Provider Nurse Practitioner Family
DX: Z03.818 Encounter for observation for suspected exposure to other biological agents ruled out (principal)
CPT/HCPCS: 36415; 71045; 85025; 87430; U0004

== ENCOUNTER → 2020-02-16 11:00 | Outpatient (CLI) | payer OTHER, SELFPAY | PROVIDERS: PCP Family Medicine; Visit Provider Family Medicine | DX: Z11.52 Encounter for screening for COVID-19 (principal) | CPT/HCPCS: U0003 ==

== ENCOUNTER → 2020-02-27 11:58 | Outpatient (CLI) | payer OTHER, SELFPAY | PROVIDERS: PCP Physician Assistant; Visit Provider Physician Assistant | DX: Z20.822 Contact with and (suspected) exposure to COVID-19 (principal) | CPT/HCPCS: U0003 ==

== ENCOUNTER → 2020-04-27 14:22 | Outpatient (CLI) | payer OTHER, SELFPAY ==
[2020-04-27 16:39] LABS: HCG,Quantitative 64 mIU/ml (0-5.42)
== END ==
PROVIDERS: Visit Provider Nurse Practitioner Obstetrics & Gynecology
DX: Z32.00 Encounter for pregnancy test, result unknown (principal)
CPT/HCPCS: 36415; 84702

== ENCOUNTER → 2020-05-10 08:58 | Outpatient (CLI) | payer OTHER, SELFPAY ==
[2020-05-10 10:01] LABS: HCG,Quantitative 8255 mIU/ml (0-5.42)
== END ==
PROVIDERS: Visit Provider Nurse Practitioner Obstetrics & Gynecology
DX: Z34.90 Encounter for supervision of normal pregnancy, unspecified, unspecified trimester (principal)
CPT/HCPCS: 36415; 84702

== ENCOUNTER → 2020-05-20 08:29 | Outpatient (CLI) | payer OTHER, SELFPAY ==
--- NOTE | 2020-05-20 08:29 | US_ITS ---
PROCEDURE: US OB <= 14 WEEKS FETUS CLINICAL INDICATION: for dates COMPARISON: US US OB <= 14 WEEKS FETUS from 12/25/2019 FINDINGS: An intrauterine gestational sac is present with a pole with a crown-rump length of 1.07cm correlating to gestational age of 7weeks 2days. heart tones are present with an FHR of 134bpm. Yolk sac is noted. Incidental note is is made of 1.9 cm right ovarian cyst IMPRESSION: Live IUP at 7 weeks 2 days Estimated due date by Ultrasound is 01/04/2021 Dictated by: Mark Mancilla MD 05/20/2020 14:21 Mark Mancilla MD in [facility] 05/20/2020 14:21
== END ==
PROVIDERS: PCP Family Medicine; Visit Provider Nurse Practitioner Obstetrics & Gynecology
DX: Z34.90 Encounter for supervision of normal pregnancy, unspecified, unspecified trimester (principal)
CPT/HCPCS: 76801

== ENCOUNTER 2020-05-21 13:41 | Emergency (ER) | payer OTHER, SELFPAY ==
[2020-05-21 13:53] VITALS: BP 137/82; PULSE 73; RESP 16; TEMP 37; O2SAT 98; BMI 27.9
[2020-05-21 14:26] LABS: Microscopic, Urine URINE MICROSCOPIC (MICROSCOPIC)
[2020-05-21 14:27] LABS: Appearance,Urine CLEAR (Clear); Bilirubin,Urine Negative (Negative); Blood, Urine Negative (Negative); Color,Urine YELLOW (Yellow); Glucose,Urine (UA) Negative (Negative); Ketones,Urine 1+ (Negative); Leukocyte Esterase,Urine Negative (Negative); Nitrate,Urine Negative (Negative); PH,Urine 6.5 (5.0-8.5); Protein,Urine Negative (Negative); Specific Gravity, Urine 1.025 (1.005-1.030); Urobilinogen,Urine 0.2 EU/dl (0.2)
[2020-05-21 14:29] LABS: Basophils % 0.4 % (0.1-2.0); Eosinophils # 0.1 K/mm3 (0.0-0.4); Eosinophils % 1.2 % (0.1-12.0); Hematocrit 42.8 % (37.0-47.0); Hemoglobin 13.5 g/dL (12.2-16.2); Lymphocytes # 1.9 K/mm3 (0.7-4.5); Lymphocytes % 16.3 % (10-50); Mean Corpuscular HGB Conc 31.5 g/dL (31.8-35.4); Mean Corpuscular Hemoglobin 26.9 pg (27.0-31.2); Mean Corpuscular Volume 85.2 fl (81-99); Monocytes # 0.5 K/mm3 (0.1-1.0); Monocytes % 4.3 % (1.7-9.3); Neutrophils % 77.8 % (37.0-80.0); Platelet Count 323 K/mm3 (142-424); Red Blood Count 5.02 M/mm3 (4.20-5.40); Red Cell Distribution Width 12.9 % (11.5-17.5); White Blood Count 11.6 K/mm3 (4.8-10.8)
[2020-05-21 14:30] LABS: Chloride 103 mmol/L (98-107)
[2020-05-21 14:31] LABS: Potassium 3.8 mmoL/L (3.5-5.1); Sodium 137 mmol/L (136-145)
[2020-05-21 14:33] LABS: Alanine Aminotransferase 15 U/L (12-78); Aspartate Amino Transferase 30 U/L (14-36); Blood Urea Nitrogen 15 mg/dl (7-17); Creatinine Clearance Estimated 191 mL/min (50-200); Estimated Glomerular Filt Rate 117 ml/min (>60); GFR (African American) 142 ML/MIN (>60)
[2020-05-21 14:34] LABS: Albumin/Globulin Ratio 1.5 (1.1-1.8); Alkaline Phosphatase 61 U/L (38-126); Anion Gap 11.8 mEq/L (5-15); Bilirubin,Total 0.4 mg/dl (0.2-1.3); Calcium 9.8 mg/dl (8.4-10.2); Carbon Dioxide 26 mmol/L (22.0-30.0); Globulin 3.3 g/dL (1.3-3.2); Glucose 100 mg/dl (74-100); Total Protein,Serum 8.3 g/dl (6.3-8.2)
--- NOTE | 2020-05-21 15:24 | HMH.EDNVD ---
ED Disposition Clinical Impression: Hyperemesis gravidarum Disposition: Home, Self-Care Condition on Discharge: Good Instructions: DI for Hyperemesis Gravidarum Additional Instructions: Use the Phenergan prescribed by your OB for nausea and vomiting and increase oral hydration. Return to the ED for any new or worsening symptoms. Referrals: Dilshad Nunn MD [Primary Care Provider] - Forms: Work/School Release Time of Disposition: 16:24 - Critical Care Critical Care Time: No Attestation: On 05/21/20, the high probability of a clinically significant, sudden or life threatening deterioration of the following system(s) required my full and direct attention, intervention and personal management. The time I documented below is in addition to time spent performing reported procedures but includes the following listed in this critical care notation. Medical Decision Making - Medical Records Medical records reviewed: Yes: I reviewed the patient's medical records. - Kameron Inquiry Pt receiving controlled substance: No Vital Signs: 05/21/20 13:53 05/21/20 15:36 05/21/20 16:43 Temperature 98.6 F 98 F Temperature Source Oral Oral Pulse Rate 75 78 Pulse Rate [Radial] 73 Respiratory Rate 16 16 Blood Pressure 120/73 117/64 Blood Pressure [Right Arm] 137/82 Blood Pressure Mean [Right Arm] 100 Blood Pressure Source Automatic Cuff Blood Pressure Position Sitting Sitting Blood Pressure Position [Right Arm] Sitting 02 Sat by Pulse Oximetry 98 100 Oxygen Delivery Method Room Air Room Air Room Air - Lab Data Lab Results 05/21/20 14:15: Urine Color Yellow, Urine Appearance Clear, Urine pH 6.5, Ur Specific [place] 1.025, Urine Protein Negative, Urine Glucose (UA) Negative, Urine Ketones 1+, Urine Blood Negative, Urine Nitrate Negative, Urine Bilirubin Negative, Urine Urobilinogen 0.2, Ur Leukocyte Esterase Negative, Urine RBC None, Urine WBC 3-5, Ur Squamous Epith Cells 3-5, Urine Bacteria None 05/21/20 14:15: WBC 11.6 H, RBC 5.02, Hgb 13.5, Hct 42.8, MCV 85.2, MCH 26.9 L, MCHC 31.5 L, RDW 12.9, Plt Count 323, MPV 7.0 L, Neut % (Auto) 77.8, Lymph % (Auto) 16.3, [place] % (Auto) 4.3, Eos % (Auto) 1.2, Baso % (Auto) 0.4, Neut # (Auto) 9.0 H, Lymph # (Auto) 1.9, [place] # (Auto) 0.5, Eos # (Auto) 0.1, Baso # (Auto) 0.0 05/21/20 14:15: Sodium 137, Potassium 3.8, Chloride 103, Carbon Dioxide 26, Anion Gap 11.8, BUN 15, Creatinine 0.60, Estimated Creat Clear 191, Estimated GFR 117, Est GFR ( Amer) 142, Glucose 100, Calcium 9.8, Total Bilirubin 0.4, AST 30, ALT 15, Alkaline Phosphatase 61, Total Protein 8.3 H, Albumin 5.0, Globulin 3.3 H, Albumin/Globulin Ratio 1.5 Result diagrams: 05/21/20 14:15 05/21/20 14:15 Orders (Tests/Meds): ED MEDICATIONS Discontinued Medications Generic Name Dose Route Start Last Admin Trade Name Freq PRN Reason Stop Dose Admin Lactated Ringer's 1,000 mls @ 999 mls/hr 05/21/20 14:30 Lactated Ringer's 1000 Ml Bag IV 05/21/20 15:30 .[id number] JAMIE Promethazine HCl 25 mg 05/21/20 14:58 05/21/20 15:17 Promethazine Hcl 25mg/Ml 1ml Vial IV 05/21/20 14:59 25 mg ONCE ONE Administration Sodium Chloride 10 ml 05/21/20 14:20 Sodium Chloride 0.9% 10ml Flush Syringe IV 05/22/20 02:21 NEEDED PRN Maintain IV Site Sodium Chloride 25 ml 05/21/20 14:58 Sodium Chloride 0.9% 25ml Bag IV 05/21/20 14:59 ONCE ONE Medical Decision Narrative: 29-year-old female who presents 8 weeks with acute vomiting with history of hyperemesis gravidarum. Patient was given IV Phenergan and IV fluid bolus with laboratory data obtained. Urinalysis does not demonstrate urinary tract infection. Patient is not having bleeding and therefore will not require RhoGam her type and screen. Patient is having no vaginal discharge or urinary symptoms therefore low concern for infectious pathology. Patient is established with OB and has spoken with them regardin
[2020-05-21 15:36] VITALS: BP 120/73; PULSE 75; O2SAT 100
[2020-05-21 16:43] VITALS: BP 117/64; PULSE 78; RESP 16; TEMP 36.6; O2SAT 98
== END 2020-05-21 16:44 | disposition home or self-care (01) ==
PROVIDERS: Emergency Provider Student in an Organized Health Care Education/Training Program; PCP Family Medicine
DX: O21.0 Mild hyperemesis gravidarum (principal); K21.9 Gastro-esophageal reflux disease without esophagitis
CPT/HCPCS: 80053; 81001; 85025; 96365; 96367; 99282

== ENCOUNTER → 2020-06-08 08:59 | Outpatient (CLI) | payer OTHER, SELFPAY ==
[2020-06-08 09:15] LABS: Basophils % 0.4 % (0.1-2.0); Eosinophils # 0.3 K/mm3 (0.0-0.4); Eosinophils % 3.1 % (0.1-12.0); Hematocrit 38.6 % (37.0-47.0); Hemoglobin 12.5 g/dL (12.2-16.2); Lymphocytes % 21.4 % (10-50); Mean Corpuscular HGB Conc 32.4 g/dL (31.8-35.4); Mean Corpuscular Hemoglobin 27.5 pg (27.0-31.2); Mean Corpuscular Volume 84.9 fl (81-99); Mean Platelet Volume 7.6 fl (7.4-10.4); Monocytes # 0.5 K/mm3 (0.1-1.0); Neutrophils # 6.7 K/mm3 (1.8-7.8); Neutrophils % 70.1 % (37.0-80.0); Platelet Count 273 K/mm3 (142-424); Red Blood Count 4.55 M/mm3 (4.20-5.40); Red Cell Distribution Width 13.4 % (11.5-17.5); White Blood Count 9.5 K/mm3 (4.8-10.8)
[2020-06-09 10:13] LABS: Rapid Plasma Reagin Ab Titer Non Reactive (NonRea<1:1)
[2020-06-09 15:14] LABS: HIV Screen 4th Generation wRfx Non Reactive (Non Reactive); Hepatitis B Surface Antigen Negative (Negative); Hepatitis C Antibody <0.1 s/co ratio (0.0-0.9); Rubella Antibodies, IgG 4.93 index (Immune >0.99)
== END ==
PROVIDERS: Visit Provider Nurse Practitioner Obstetrics & Gynecology
DX: Z34.90 Encounter for supervision of normal pregnancy, unspecified, unspecified trimester (principal); Z3A.01 Less than 8 weeks gestation of pregnancy
CPT/HCPCS: 85025; 86592; 86703; 86762; 86850; 87340; 87380; G0432

== ENCOUNTER → 2020-08-06 11:37 | Outpatient (CLI) | payer OTHER, SELFPAY | PROVIDERS: PCP Family Medicine; Visit Provider Internal Medicine Cardiovascular Disease | DX: R00.2 Palpitations (principal) | CPT/HCPCS: 93225 ==

== ENCOUNTER 2020-08-12 12:16 | Emergency (ER) | payer OTHER, SELFPAY ==
[2020-08-12 12:20] VITALS: BP 123/74; PULSE 79; RESP 18; TEMP 37; O2SAT 98; BMI 28.3
--- NOTE | 2020-08-12 12:38 | HMH.EDUTC ---
[facility] [place] Disposition Clinical Impression: Sinusitis Qualifiers: Sinusitis location: unspecified location Chronicity: unspecified Qualified Code(s): J32.9 - Chronic sinusitis, unspecified Disposition: Home, Self-Care Condition on Discharge: Good Instructions: Sinusitis, DI for Sinusitis, Azithromycin, Fluticasone Nasal [place] Additional Instructions: *Monitor Temp, Over the counter Motrin or Tylenol as directed/as needed Tylenol every 4 hours and Motrin every 6 hours (as long as your family doctor has told you that you can take it) for fever or pain. and straight to ER if unable to lower temp less than 101.0 after medication given *Warm salt water gargles may help to soothe the throat *Throat Lozenges *Warm fluids like tea with honey may help to soothe the throat *Sleep elevated *Humidifier/Vaporizer *Flonase 2 sprays in each nostril daily but be aware that it may take 2-3 days before you notice improvement Take medication as prescribed Check with your pharmacy Claritan may help with allergy symptoms but make sure to always check with your pharmacy before taking any medication during Follow up IMMEDIATELY for new or worsening symptoms or no Noticeable improvement over the next 48-72 hours. 911 for difficulty breathing or swallowing Prescriptions: Fluticasone Propionate [Flonase 50mcg nasal spray 16gm] 1 spr NS DAILY #1 bottle Transmission Status: Pending to [facility] Azithromycin [Z-Jaydon 250mg Tab] 250 mg PO DIRECTED #6 tab Transmission Status: Pending to [facility] Referrals: Dilshad Nunn MD [Primary Care Provider] - As needed Time of Disposition: 12:57 Medical Decision Making - Kameron Inquiry Pt receiving controlled substance: No Kameron was queried for this patient: No Vital Signs: 08/12/20 12:20 Temperature 98.6 F Temperature Source Oral Pulse Rate [Right Brachial] 79 Respiratory Rate 18 Blood Pressure [Right Arm] 123/74 Blood Pressure Mean [Right Arm] 90 Blood Pressure Source [Right Arm] Automatic Cuff Blood Pressure Position [Right Arm] Sitting 02 Sat by Pulse Oximetry 98 Oxygen Delivery Method Room Air Medical Decision Narrative: Medication verified by pharmacy safe for use during [facility] [place] HPI - General Stated complaint: sinud congestion, ear pain Time Seen by Provider: 08/12/20 12:38 Mode of Arrival: Ambulatory Source of Information: Patient Limitations: No Limitations Description of Symptoms (Recalled from Triage Doc. by RN): PATIENT C/O BILATERAL EAR PAIN, COUGH, HEADACHE, SINUS PRESSURE X 5 DAYS HEENT Symptoms (Recalled from RN notes): Yes Resp Symptoms (Recalled from RN notes): Yes Skin Symptoms (Recalled from RN notes): No MS Symptoms (Recalled from RN notes): No Functional Status (Recalled from RN notes): WNL - History of Present Illness Provider Complaint: Patient states that she has been having sinus pain and pressure, bilateral ear pain, cough and headache for about a week States that she has been taking Tylenol sinus but hasnt helped States that she is 20wks OB - Related Data Home Medications Medication Instructions Recorded Confirmed vits no.130-ferrous fum 1 tab PO DAILY tab 08/06/20 08/12/20 27 mg iron-folic acid 800 mcg tablet sertraline 100 mg tablet 100 mg PO DAILY tab 08/06/20 08/12/20 Previous Rx's Medication Instructions Recorded Azithromycin [Z-Jaydon 250mg Tab] 250 mg PO DIRECTED #6 tab 08/12/20 Fluticasone Propionate [Flonase 1 spr NS DAILY #1 bottle 08/12/20 50mcg nasal spray 16gm] Allergies Allergy/AdvReac Type Severity Reaction Status Date / Time cephalexin [From Keflex] AdvReac Verified 08/06/20 11:01 - Worker's Comp Is this a Worker's Comp case?: No H History - Hepatitis A Screen Drug use history?: No High risk sexual behaviors?: No History of sexually transmitted infection?: No Currently employed?: No Childcare worker?: No Do you have indoor nessa
[2020-08-12 13:00] VITALS: BP 123/74; PULSE 79; RESP 18; TEMP 37; O2SAT 98
== END 2020-08-12 13:03 | disposition home or self-care (01) ==
PROVIDERS: Emergency Provider Nurse Practitioner; PCP Family Medicine
DX: J32.9 Chronic sinusitis, unspecified (principal); Z3A.20 20 weeks gestation of pregnancy

== ENCOUNTER → 2020-08-18 10:31 | Outpatient (CLI) | payer OTHER, SELFPAY ==
--- NOTE | 2020-08-18 10:31 | US_ITS ---
PROCEDURE: US OB >= 14 WEEKS FETUS CLINICAL INDICATION: OB complete Anatomy exam COMPARISON: US US OB <= 14 WEEKS FETUS from 05/20/2020 FINDINGS: Single viable intrauterine gestation. Cephalic position. Placenta: Posterior,placenta grade 1. There is average amount fluid. Complete survey performed and was unremarkable on the submitted images as in PACS. No discrete anomalies identified on survey imaging by technologist. Active fetus. Three-vessel cord with satisfactory umbilical cord insertion. 4- chamber heart noted. Survey of brain & ventricles Unremarkable. Face and neck survey unremarkable. Diaphragm and chest views unremarkable. Abdomen: Both kidneys noted and unremarkable. Stomach noted and satisfactory. Spine: Survey of the spine satisfactory with no anomalies identified nor imaged. Both arms and legs noted. Amniotic Fluid: Adequate. Maternal adnexa: No significant findings. Measurements: Average ultrasound age 20weeks 2days. Gestational Age 20weeks 2days Estimated due date by ultrasound age 1101/03/2021. Estimated weight 350g BPD = 20weeks 2days OFD = 20weeks 3days HC = 19weeks 5days AC = 20weeks 3days FL = 20weeks 5days Growth Percentile= 35% Heart Rate = 156bpm Cerebellum = 19weeks 3days Humerus = 20weeks 4days HC/AC is 1.13 CI is 0.78 FL/BPD is 0.72 FL/AC is 0.22 IMPRESSION: Live IUP which is in cephalic presentation. Average ultrasound age is 20 weeks 2 days. No obvious anomalies. Please see above for detail. Dictated by: Mark Mancilla MD 08/18/2020 11:18 Mark Mancilla MD in [facility] 08/18/2020 11:18
== END ==
PROVIDERS: PCP Family Medicine; Visit Provider Obstetrics & Gynecology
DX: Z34.90 Encounter for supervision of normal pregnancy, unspecified, unspecified trimester (principal)
CPT/HCPCS: 76805

== ENCOUNTER → 2020-10-05 08:42 | Outpatient (CLI) | payer OTHER, SELFPAY ==
[2020-10-05 09:28] LABS: Basophils # 0.1 K/mm3 (0-0.2); Basophils % 0.6 % (0.1-2.0); Eosinophils # 0.3 K/mm3 (0.0-0.4); Eosinophils % 2.9 % (0.1-12.0); Hematocrit 34.8 % (37.0-47.0); Hemoglobin 11.3 g/dL (12.2-16.2); Lymphocytes # 1.7 K/mm3 (0.7-4.5); Lymphocytes % 19.5 % (10-50); Mean Corpuscular HGB Conc 32.5 g/dL (31.8-35.4); Mean Corpuscular Hemoglobin 28.3 pg (27.0-31.2); Mean Corpuscular Volume 87.3 fl (81-99); Monocytes # 0.5 K/mm3 (0.1-1.0); Monocytes % 5.9 % (1.7-9.3); Neutrophils # 6.2 K/mm3 (1.8-7.8); Neutrophils % 71.1 % (37.0-80.0); Platelet Count 281 K/mm3 (142-424); Red Blood Count 3.99 M/mm3 (4.20-5.40); Red Cell Distribution Width 13.9 % (11.5-17.5); White Blood Count 8.7 K/mm3 (4.8-10.8)
[2020-10-06 12:42] LABS: Varicella-Zoster Ab, IgM 1.16 index (0.00-0.90)
[2020-10-06 20:12] LABS: Varicella Zoster IgG 428 index (Immune >165)
== END ==
PROVIDERS: Visit Provider Obstetrics & Gynecology
DX: Z34.90 Encounter for supervision of normal pregnancy, unspecified, unspecified trimester (principal)
CPT/HCPCS: 36415; 85025; 86787

== ENCOUNTER → 2020-10-14 07:20 | Outpatient (CLI) | payer OTHER, SELFPAY ==
[2020-10-14 07:53] LABS: Glucose,Fasting 96 mg/dl (74-100)
[2020-10-14 09:09] LABS: Glucose 1 Hour 125 mg/dL (74-100)
== END ==
PROVIDERS: Visit Provider Obstetrics & Gynecology
DX: Z34.90 Encounter for supervision of normal pregnancy, unspecified, unspecified trimester (principal)
CPT/HCPCS: 36415; 82951

== ENCOUNTER → 2020-10-20 18:34 | Outpatient (CLI) | payer OTHER, SELFPAY ==
[2020-10-20 18:58] LABS: Adenovirus,PCR Not Detected (NotDetected); Bordetella Pertussis Not Detected (NotDetected); Chlamydophila Pneumoniae, PCR Not Detected (NotDetected); Coronavirus 19, PCR Not Detected (NotDetected); Coronavirus 229E Not Detected (NotDetected); Coronavirus NL63 Not Detected (NotDetected); Coronavirus OC43 Not Detected (NotDetected); Coronovirus HKU1,PCR Not Detected (NotDetected); Human Metapneumovirus Not Detected (NotDetected); Influenza A, PCR Not Detected (NotDetected); Influenza AH1, 2009 Not Detected (NotDetected); Influenza AH1, PCR Not Detected (NotDetected); Influenza AH3,PCR Not Detected (NotDetected); Influenza B, PCR Not Detected (NotDetected); Mycoplasma Pneumoniae, PCR Not Detected (NotDetected); Parainfluenza 1, PCR Not Detected (NotDetected); Parainfluenza 2, PCR Not Detected (NotDetected); Parainfluenza 3, PCR Not Detected (NotDetected); Parainfluenza 4, PCR Not Detected (NotDetected); Respiratory Syncytial Virus Not Detected (NotDetected); Rhinovirus/Enterovirus Not Detected (NotDetected)
[2020-10-20 19:09] LABS: Basophils # 0.1 K/mm3 (0-0.2); Basophils % 0.5 % (0.1-2.0); Eosinophils # 0.1 K/mm3 (0.0-0.4); Eosinophils % 1.1 % (0.1-12.0); Hematocrit 32.5 % (37.0-47.0); Hemoglobin 10.7 g/dL (12.2-16.2); Lymphocytes # 2.4 K/mm3 (0.7-4.5); Lymphocytes % 19.5 % (10-50); Mean Corpuscular HGB Conc 32.9 g/dL (31.8-35.4); Mean Corpuscular Hemoglobin 28.4 pg (27.0-31.2); Mean Corpuscular Volume 86.3 fl (81-99); Mean Platelet Volume 7.9 fl (7.4-10.4); Monocytes # 0.7 K/mm3 (0.1-1.0); Monocytes % 5.4 % (1.7-9.3); Neutrophils # 8.9 K/mm3 (1.8-7.8); Neutrophils % 73.6 % (37.0-80.0); Platelet Count 308 K/mm3 (142-424); Red Blood Count 3.76 M/mm3 (4.20-5.40); Red Cell Distribution Width 13.9 % (11.5-17.5); White Blood Count 12.2 K/mm3 (4.8-10.8)
== END ==
PROVIDERS: PCP Physician Assistant; Visit Provider Physician Assistant
DX: Z20.822 Contact with and (suspected) exposure to COVID-19 (principal)
CPT/HCPCS: 85025; 87581; 87633; 87798

== ENCOUNTER → 2020-11-19 12:55 | Outpatient (CLI) | payer OTHER, SELFPAY ==
--- NOTE | 2020-11-19 12:56 | US_ITS ---
PROCEDURE: US OB FOLLOW UP CLINICAL INDICATION: growth and FAWN Large for gestational age FINDINGS: The following parameters are obtained: Average ultrasound age is Average 33weeks 3days Estimated due date by ultrasound is 01/04/2021. Estimated weight is 2,184g. This is 30th percentile BPD: 32weeks 6days OFD: 34 weeks 6 days HC: 33weeks 4days AC: 33weeks FL: 34weeks 2days heart rate: 128bpm bpm. HC/AC: 1.04 Cephalic index: 0.75 FL/BPD: 0.81 FL/AC: 0.23 Amniotic fluid index: 16.73cm The femur length is 34weeks 2days The fetus is in cephalic presentation. Cervix is closed measuring 3 cm. The placenta is posterior and fundal in implantation and grade 2 IMPRESSION: There is a single live fetus present in cephalic presentation. Average ultrasound age 33 weeks 3 days with an estimated weight 2184 g which is 30th percentile. FAWN is normal at 17 cm. Dictated by: Mark Mancilla MD 11/22/2020 08:51 Mark Mancilla MD in [facility] 11/22/2020 08:51
== END ==
PROVIDERS: PCP Family Medicine; Visit Provider Obstetrics & Gynecology
DX: O36.60X0 Maternal care for excessive fetal growth, unspecified trimester, not applicable or unspecified (principal)
CPT/HCPCS: 76816

== ENCOUNTER → 2020-11-25 15:48 | Outpatient (CLI) | payer OTHER, SELFPAY ==
[2020-11-25 16:02] VITALS: BP 137/71; PULSE 86; RESP 18; O2SAT 100
== END ==
PROVIDERS: PCP Family Medicine; Visit Provider Obstetrics & Gynecology
DX: O47.00 False labor before 37 completed weeks of gestation, unspecified trimester (principal); R10.31 Right lower quadrant pain
CPT/HCPCS: 96360; 96375; J2405

== ENCOUNTER → 2020-11-29 16:29 | Outpatient (CLI) | payer OTHER, SELFPAY | PROVIDERS: Visit Provider Obstetrics & Gynecology | DX: Z34.90 Encounter for supervision of normal pregnancy, unspecified, unspecified trimester (principal) | CPT/HCPCS: 86403 ==

== ENCOUNTER 2020-12-16 09:33 | Inpatient (IN) | payer OTHER, SELFPAY ==
[2020-12-16 09:10] VITALS: BMI 32.5
--- NOTE | 2020-12-16 09:14 | HMH.HP ---
*Admission Date: 12/16/20 *Chief complaint: contractions *History of present illness: 30 yo @ 37 5/7 presented with regular contractions no vaginal bleeding or leakage of fluid cervical change noted on exam and she was admitted with active labor History of previous c section with plans for elective repeat c section Mild anemia noted on admission labs; otherwise uncomplicated [facility] History I have reviewed the patient's past medical history: Yes Medical History: Reports:: Gastroesophageal Reflux Disease(GERD), Palpitations Denies:: Asthma, Diabetes Mellitus Type 1, Diabetes Mellitus Type 2, Internal Pacemaker, Seizures *Have you ever received a pneumonia vaccine?: No *Have you received a flu vaccine this season?: No Anesthesia experience/problems:: nac Other Surgeries: Yes: No Previous Surgery, (08/06/2017). 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 , : 3 Para: 1 A: 1 LMP comments: Review of Systems - Review of Systems Review of systems:: pertinent systems reviewed and negative unless documented below - *Genitourinary Denies abnormal vaginal bleeding Meds Home Medications Medication Instructions Recorded Confirmed Type vits no.130-ferrous fum 1 tab PO DAILY tab 08/06/20 12/16/20 History 27 mg iron-folic acid 800 mcg tablet fexofenadine 180 mg tablet 180 mg PO DAILY 11/12/20 12/16/20 History Citalopram Hydrobromide 20 mg PO DAILY 12/16/20 12/16/20 History [Citalopram HBr] Fluticasone Propionate [Flonase 1 spr NS DAILY 12/16/20 12/16/20 History 50mcg nasal spray 16gm] Omeprazole Magnesium 20 mg PO DAILY 12/16/20 12/16/20 History Allergies Allergy/AdvReac Type Severity Reaction Status Date / Time cephalexin [From Keflex] AdvReac Verified 12/16/20 08:47 Exam Vital signs and Labs for Last 24 Hours: Temp Pulse Resp BP Pulse Ox 98.0 F 73 20 138/88 99 12/16/20 12:55 12/16/20 12:55 12/16/20 12:55 12/16/20 12:55 12/16/20 12:55 Laboratory Results - last 24 hr 12/16/20 10:00: WBC 12.3 H, RBC 4.41, Hgb 11.8 L, Hct 36.8 L, MCV 83.5, MCH 26.8 L, MCHC 32.1, RDW 13.8, Plt Count 310, MPV 7.6, Neut % (Auto) 77.7, Lymph % (Auto) 14.8, [place] % (Auto) 5.2, Eos % (Auto) 1.7, Baso % (Auto) 0.5, Neut # (Auto) 9.5 H, Lymph # (Auto) 1.8, [place] # (Auto) 0.6, Eos # (Auto) 0.2, Baso # (Auto) 0.1 12/16/20 10:00: Sodium 134 L, Potassium 4.1, Chloride 107, Carbon Dioxide 22, Anion Gap 9.1, BUN 10, Creatinine 0.50 L, Estimated Creat Clear 265, Estimated GFR 144, Est GFR ( Amer) 174, Glucose 89, Calcium 8.8 12/16/20 10:00: SARS-CoV-2 (PCR) Not detected, Influenza A Untype (PCR) Not detected, Influenza Type B (PCR) Not detected 12/16/20 10:00: Blood Type A Positive, Antibody Screen Negative I & O for Last 24 hours: Intake & Output 12/14/20 12/15/20 12/16/20 12/17/20 11:59 11:59 11:59 11:59 Intake Total 1999 Balance 1999 Weight 227 lb - Constitutional no acute distress - *Routine HEENT Exam Head: Present: normocephalic Eye: Absent: scleral injection ENT: Present: mucous membranes moist - *Routine Neck Exam Present: supple. Absent: lymphadenopathy - *Routine Respiratory Exam Present: CTA bilaterally - *Routine Cardiovascular Exam Present: RRR - *Routine Abdominal Exam Present: soft, normoactive bowel sounds. Absent: tenderness - *Routine Rectal Exam Rectal:: deferred - *Routine Genitalia Exam Genitalia:: other (cervix 2/90/0) - *Routine Extremities Exam Absent: cyanosis, clubbing, edema - *Routine Skin Exam Present: warm. Absent: rash -
[2020-12-16 10:10] LABS: Coronavirus 19, PCR Not Detected (NotDetected); Influenza A, PCR Not Detected (NotDetected); Influenza B, PCR Not Detected (NotDetected)
--- NOTE | 2020-12-16 10:18 | HMH.PHAINT ---
MEDICATION RECONCILIATION COMPLETE USING LIST FROM MD OFFICE VISIT 12/16/20 AND EXTERNAL PHARMACY FILL HISTORY.
[2020-12-16 10:37] LABS: Basophils # 0.1 K/mm3 (0-0.2); Basophils % 0.5 % (0.1-2.0); Eosinophils # 0.2 K/mm3 (0.0-0.4); Eosinophils % 1.7 % (0.1-12.0); Hematocrit 36.8 % (37.0-47.0); Hemoglobin 11.8 g/dL (12.2-16.2); Lymphocytes # 1.8 K/mm3 (0.7-4.5); Lymphocytes % 14.8 % (10-50); Mean Corpuscular HGB Conc 32.1 g/dL (31.8-35.4); Mean Corpuscular Hemoglobin 26.8 pg (27.0-31.2); Mean Corpuscular Volume 83.5 fl (81-99); Mean Platelet Volume 7.6 fl (7.4-10.4); Monocytes # 0.6 K/mm3 (0.1-1.0); Monocytes % 5.2 % (1.7-9.3); Neutrophils # 9.5 K/mm3 (1.8-7.8); Neutrophils % 77.7 % (37.0-80.0); Platelet Count 310 K/mm3 (142-424); Red Blood Count 4.41 M/mm3 (4.20-5.40); Red Cell Distribution Width 13.8 % (11.5-17.5); White Blood Count 12.3 K/mm3 (4.8-10.8)
[2020-12-16 10:47] VITALS: BP 114/83; PULSE 83; RESP 18; TEMP 36.9; O2SAT 100; BMI 32.5
[2020-12-16 10:55] LABS: Chloride 107 mmol/L (98-107); Potassium 4.1 mmoL/L (3.5-5.1); Sodium 134 mmol/L (136-145)
[2020-12-16 10:58] LABS: Blood Urea Nitrogen 10 mg/dl (7-17); Creatinine Clearance Estimated 265 mL/min (50-200); Estimated Glomerular Filt Rate 144 ml/min (>60); GFR (African American) 174 ML/MIN (>60)
[2020-12-16 10:59] LABS: Anion Gap 9.1 mEq/L (5-15); Calcium 8.8 mg/dl (8.4-10.2); Carbon Dioxide 22 mmol/L (22.0-30.0); Glucose 89 mg/dl (74-100)
[2020-12-16 12:25] VITALS: BP 147/77; PULSE 74; RESP 20; TEMP 36.7; O2SAT 98
--- NOTE | 2020-12-16 12:32 | HMH.ANESCL ---
[facility] Anesthesia Checklist - Patient Identification Patient Identification: Arm Band - Structural Data Admitted From: Inpatient Planned Operative Procedure/s: Repeat C/S Consent for Planned Operative Procedure(s) Verified: Yes Verified Documents: Surgical Consent, History and Physical - NPO Status Verified Time NPO: 00:00 - Additional verifications Anesthesia Reactions: No - Airway Assessment C-Spine Mobility Assessed: Yes (mp2) TMJ Mobility Assessed: Yes Dentition: Good Dentition - Neurological Assessment Level of Consciousness: Awake, Alert - Anesthesia Plan Anesthesia Risk discussed: Yes Anesthesia Plan: Verified ASA Class: II Anesthesia Type: Spinal (with Bilateral TAP block) [facility] History I have reviewed the patient's past medical history: Yes Medical History: Reports:: Gastroesophageal Reflux Disease(GERD), Palpitations Denies:: Asthma, Diabetes Mellitus Type 1, Diabetes Mellitus Type 2, Internal Pacemaker, Seizures *Have you ever received a pneumonia vaccine?: No *Have you received a flu vaccine this season?: No Anesthesia experience/problems:: nac Other Surgeries: Yes: (08/06/2017). 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
--- NOTE | 2020-12-16 12:34 | HMH.ANESI ---
[facility] Anesthesia Record Part I Intake, IV Amount: 2,000 Estimated blood loss (mL): 600 Urine output (mL): 100 Blood Pressure: 147/77 SaO2: 97 Pulse Rate: 74 Respiratory Rate: 16 Temperature: 98 F Patient is:: Drowsy, Stable Stable to PACU at:: 12:25
[2020-12-16 12:35] VITALS: BP 125/77; BP 147/77; PULSE 73; PULSE 74; RESP 16; RESP 20; TEMP 36.6; TEMP 36.7; O2SAT 97; O2SAT 98
[2020-12-16 12:45] VITALS: BP 135/79; PULSE 76; RESP 20; TEMP 36.7; O2SAT 99
[2020-12-16 12:55] VITALS: BP 138/88; PULSE 73; RESP 20; TEMP 36.7; O2SAT 99
--- NOTE | 2020-12-16 13:29 | HMH.OPNOTE ---
Date of procedure: 12/16/20 Pre-op Diagnosis:: 1. 37 5/7 2. Active labor 3. Previous C Section Post-op Diagnosis:: Same Procedure performed:: Low Transverse C Section Surgeon:: Isadora Ford MD SECTION LEADER AND MACHINE SETTER:: Sarath Tobias Anesthesia: spinal Estimated blood loss (mL): 600 Operative findings:: Vigorous, liveborn female infant in vertex presentation Normal uterus, fallopian tubes and ovaries Moderate pelvic adhesions Operative note:: The patient was taken to the OR and spinal was administered without difficulty. She was prepped and draped in normal sterile fashion. A pfannenstiel skin incision was made with the scalpel and carried down to the fascia. The fascia was incised in the midline and sharply dissected off the rectus muscles. The muscles were in the midline and the peritoneum was entered sharply and extended bluntly. The Carlos-O self retaining retractor was placed in the abdomen and a bladder flap was created. Moderate vesico-uterine adhesions were taken down in order to expose the lower uterine segment, without injury to the bladder. The uterus was incised in the lower uterine segment in a transverse fashion and extended bluntly. Amniotomy was performed and clear fluid noted. The infant was delivered in controlled fashion, without complication or shoulder dystocia. The was vigorous at and handed to awaiting senior ui ux designer and nursing staff for evaluation after cord clamped and cut. Cord blood was collected and a cord segment was preserved. The placenta was manually extracted and noted to be intact. The uterus was repaired with 0-vicryl in a running/locked fashion. A second layer was placed for hemostasis. The peritoneum was closed with 2-0 vicryl in a running fashion. The fascia was closed with #1 vicryl in a running fashion. The subcutaneous fat was closed with 2-0 vicryl in an interrupted fashion. The skin was closed with 2-0 stratafix in subcuticular fashion. The patient tolerated the procedure well. Sponge, lap, needle and instrument counts were correct x 2. She was taken to PACU awake and in stable condition. EBL: 600cc Condition: stable Disposition: PACU Specimens:: Placenta Complications:: None
[2020-12-16 14:33] LABS: Microscopic, Urine URINE MICROSCOPIC (MICROSCOPIC)
[2020-12-16 14:47] LABS: Appearance,Urine SL CLOUDY (Clear); Bilirubin,Urine Negative (Negative); Blood, Urine Negative (Negative); Color,Urine YELLOW (Yellow); Glucose,Urine (UA) Negative (Negative); Ketones,Urine Negative (Negative); Leukocyte Esterase,Urine Negative (Negative); Nitrate,Urine Negative (Negative); Protein,Urine Negative (Negative); Specific Gravity, Urine >= 1.030 (1.005-1.030); Urobilinogen,Urine 0.2 EU/dl (0.2)
[2020-12-16 15:03] LABS: Bacteria,Urine 3+ /lpf; Mucus,Urine 2+ /lpf
[2020-12-16 15:08] LABS: Amphetamine/Metha Screen,Urine Negative ng/ml (<1000)
[2020-12-16 15:09] LABS: Barbiturates Screen,Urine Negative ng/ml (<200); Benzodiazepines Screen,Urine Negative ng/ml (<200)
[2020-12-16 15:10] LABS: Cannabinoid Screen,Urine Negative ng/ml (<50)
[2020-12-16 15:11] LABS: Cocaine Screen,Urine Negative ng/ml (<300); Methadone Screen,Urine Negative ng/ml (<300)
[2020-12-16 15:12] LABS: Opiate Screen,Urine Negative ng/ml (<300)
[2020-12-16 15:13] LABS: Phencyclidine Screen,Urine Negative ng/ml (<25)
--- NOTE | 2020-12-16 15:56 | SUR.OPER ---
1133-viable infant female born at this time
[2020-12-16 21:18] VITALS: BP 119/80; PULSE 77; RESP 17; TEMP 36.8; O2SAT 99
[2020-12-16 22:07] LABS: Microscopic,Cath URINE MICROSCOPIC (MICROSCOPIC)
[2020-12-16 22:10] LABS: Appearance,Urine/Cath CLEAR (Clear); Bilirubin,Cath Negative (Negative); Blood, Urine/Cath Negative (Negative); Color,Urine/Cath YELLOW (Yellow); Glucose,Urine/Cath (UA) Negative (Negative); Ketones,Urine/Cath Negative (Negative); Leukocyte Esterase,Cath Negative (Negative); Nitrate,Cath Negative (Negative); PH,Urine/Cath 6.5 (5.0-8.5); Protein,Urine/Cath Negative (Negative); Specific Gravity, Urine/Cath 1.025 (1.005-1.030); Urobilinogen,Cath 0.2 EU/dl (0.2)
[2020-12-16 22:25] LABS: Bacteria,Urine/Cath TRACE /lpf; CA Oxalate Crystals,Ur/Cath Trace /lpf; RBC,Urine/Cath Occasional # /hpf (0-3)
[2020-12-17 00:34] VITALS: BP 119/73; PULSE 80; RESP 18; TEMP 37; O2SAT 100
[2020-12-17 04:06] VITALS: BP 128/81; PULSE 95; RESP 16; TEMP 37; O2SAT 99
[2020-12-17 06:58] LABS: Hematocrit 31.5 % (37.0-47.0)
[2020-12-17 07:33] VITALS: BP 138/88; PULSE 73; TEMP 36.6
--- NOTE | 2020-12-17 07:33 | P.PN_ITS ---
[facility] Anesthesia Record Part II Discharge Time: 12:55 Destination: Second Floor PACU nurse assessment reviewed?: Yes Patient Condition:: Good Anesthesia Complications:: None Swallowing reflex intact?: Yes Cyanosis?: No Blood Pressure: 138/88 Pulse Rate: 73 Temperature: 98 F Mental Status: Alert & Oriented Pain level:: 0 Nausea and/or vomitting:: None Intake, IV Amount: 0
[2020-12-17 08:21] LABS: Hemoglobin 9.9 g/dL (12.2-16.2)
--- NOTE | 2020-12-17 13:15 | HMH.ACPN2 ---
Internal Medicine - PN: Subj *Date: 12/17/20 *Time: 13:15 Interval history: POD #1 repeat CS no unusual complaints tolerating regular diet ambulating and voiding without difficulty asymptomatic with hitow-ge-eoxpnhq anemia Exam Vital signs and Labs for Last 24 Hours: Temp Pulse Resp BP Pulse Ox 98 F 73 16 138/88 99 12/17/20 07:33 12/17/20 07:33 12/17/20 04:06 12/17/20 07:33 12/17/20 04:06 Laboratory Results - last 24 hr 12/16/20 11:15: Urine Color Yellow, Urine Appearance Clear, Urine pH 6.5, Ur Specific [place] 1.025, Urine Protein Negative, Urine Glucose (UA) Negative, Urine Ketones Negative, Urine Blood Negative, Urine Nitrate Negative, Urine Bilirubin Negative, Urine Urobilinogen 0.2, Ur Leukocyte Esterase Negative, Urine RBC Occasional, Urine WBC 3-5, Ur Squamous Epith Cells None, Calcium Oxalate Crystal Trace, Urine Bacteria Trace 12/16/20 : Urine Color Yellow, Urine Appearance Sl cloudy, Urine pH 6.0, Ur Specific [place] >= 1.030, Urine Protein Negative, Urine Glucose (UA) Negative, Urine Ketones Negative, Urine Blood Negative, Urine Nitrate Negative, Urine Bilirubin Negative, Urine Urobilinogen 0.2, Ur Leukocyte Esterase Negative, Urine WBC 5-10, Ur Squamous Epith Cells 3-5, Urine Bacteria 3+, Urine Mucus 2+ 12/16/20 : Urine Opiates Screen Negative, Urine Methadone Screen Negative, Ur Barbituates Screen Negative, Ur Phencyclidine Scrn Negative, Ur Amphetamines Screen Negative, U Benzodiazepines Scrn Negative, Urine Cocaine Screen Negative, U Marijuana (THC) Screen Negative 12/17/20 06:42: Hgb 9.9 L D, Hct 31.5 L I & O for Last 24 hours: Intake & Output 12/15/20 12/16/20 12/17/20 12/18/20 11:59 11:59 11:59 11:59 Intake Total 1999 Balance 1999 Weight 227 lb Narrative: CONSTITUTIONAL: no acute distress HEENT: mucous membranes moist PULMONARY: breathing unlabored without audible wheezes CV: no tachycardia or visible JVD; normal LE peripheral pulses ABD: soft, ND; appropriately tender but no rebound/guarding : fundus firm at/below umbilicus SKIN: incision well approximated with no drainage, erythema or induration EXT: 1+ edema LEs NEURO: alert/oriented, no altered mental status PSYCH: appropriate mood and demeanor Assessment and Plan (1) 37 weeks gestation of Status: Acute Category: Medical Code(s): Z3A.37 - 37 weeks gestation of (2) Active labor at term Status: Acute Category: Medical (3) Anemia complicating Status: Acute Category: Medical Code(s): O99.019 - Anemia complicating , unspecified trimester (4) Anxiety Status: Acute Category: Medical Code(s): F41.9 - Anxiety disorder, unspecified (5) History of section Status: Acute Category: Surgical Code(s): Z98.891 - History of uterine scar from previous surgery - Assessment and plan all Dx Assessment and Plan for all problems:: routine postop/ care feso4 bid anticipate discharge home tomorrow
[2020-12-17 19:13] VITALS: BP 117/65; PULSE 83; RESP 16; TEMP 36.9; O2SAT 100
[2020-12-17 23:40] VITALS: BP 114/76; PULSE 77; RESP 17; TEMP 36.8; O2SAT 99
[2020-12-18 03:15] VITALS: BP 120/80; PULSE 75; RESP 17; TEMP 37.1; O2SAT 99
--- NOTE | 2020-12-18 11:17 | HMH.DCSUM ---
General - General Admission date:: 12/16/20 Discharge date: 12/18/20 HPI HPI: 30 yo @ 37 5/7 presented with regular contractions no vaginal bleeding or leakage of fluid cervical change noted on exam and she was admitted with active labor History of previous c section with plans for elective repeat c section Mild anemia noted on admission labs; otherwise uncomplicated Hospital Course Hospital Course: course uneventful tolerating regular diet ambulating and voiding without difficulty lochia appropriate Rhogam Administration: Not Indicated Objective Vital signs: Temp Pulse Resp BP Pulse Ox 98.7 F 75 17 120/80 99 12/18/20 03:15 12/18/20 03:15 12/18/20 03:15 12/18/20 03:15 12/18/20 03:15 Narrative: CONSTITUTIONAL: no acute distress HEENT: mucous membranes moist PULMONARY: breathing unlabored without audible wheezes CV: no tachycardia or visible JVD; normal LE peripheral pulses ABD: soft, ND; appropriately tender but no rebound/guarding : fundus firm at/below umbilicus SKIN: incision well approximated with no drainage, erythema or induration EXT: 1+ edema LEs NEURO: alert/oriented, no altered mental status PSYCH: appropriate mood and demeanor Results Labs on day of discharge: Preliminary micro results at discharge 12/16/20 Unknown Urine Culture - Preliminary Urine,Clean Catch NO GROWTH AFTER 24 HOURS DS: Diagnosis - Discharge Diagnosis (1) 37 weeks gestation of Status: Acute (2) Active labor at term Status: Acute (3) Anemia complicating Status: Acute (4) Anxiety Status: Acute (5) History of section Status: Acute Discharge Plan - Patient Discharge Instructions ACTIVITY: Continue current activity DIET: regular diet Additional Instructions: NO HEAVY LIFTING OR STRENUOUS ACTIVITY NOTHING IN VAGINA FOR 6 WEEKS NO DRIVING WHILE TAKING PAIN MEDICATION FOLLOW-UP WITH DR. JACOBSEN ON Patient Instructions: Depression, Hemorrhage, DI for , DI for Pre-eclampsia, Surgical Site Infection, DI for Postoperative Pain, [facility] Post Discharge Instructions, Preventing the Spread of Coronavirus Discharge Instructions - Follow up Plan Disposition: Home, Self-Care Condition at discharge:: Stable Home Medications: Home Medications Medication Instructions Recorded Confirmed Type vits no.130-ferrous fum 1 tab PO DAILY tab 08/06/20 12/16/20 History 27 mg iron-folic acid 800 mcg tablet fexofenadine 180 mg tablet 180 mg PO DAILY 11/12/20 12/16/20 History Citalopram Hydrobromide 20 mg PO DAILY 12/16/20 12/16/20 History [Citalopram HBr] Fluticasone Propionate [Flonase 1 spr NS DAILY 12/16/20 12/16/20 History 50mcg nasal spray 16gm] Omeprazole Magnesium 20 mg PO DAILY 12/16/20 12/16/20 History Ibuprofen [Motrin 400mg 800 mg PO Q6HP PRN #40 tab 12/18/20 Rx tablet] Oxycodone HCl [OxyIR 5mg tablet] 5 mg PO Q6HP PRN #24 tablet 12/18/20 Rx Prescriptions/Medication Reconciliation: New Citalopram Hydrobromide [Citalopram 20mg Tablet] 20 mg PO 2100 tablet Ferrous Sulfate [Ferrous Sulfate 325mg Tablet] 325 mg PO BID tablet Oxycodone HCl [OxyIR 5mg tablet] 5 mg PO Q6HP PRN #24 tablet PRN Reason: Moderate To Severe Pain Ibuprofen [Motrin 400mg tablet] 800 mg PO Q6HP PRN #40 tab PRN Reason: Mild To Moderate Pain Continued vits no.130-ferrous fum 27 mg iron-folic acid 800 mcg tablet 1 tab PO DAILY tab fexofenadine 180 mg tablet 180 mg PO DAILY Fluticasone Propionate [Flonase 50mcg nasal spray 16gm] 1 spr NS DAILY Citalopram Hydrobromide [Citalopram HBr] 20 mg PO DAILY Omeprazole Magnesium 20 mg PO DAILY - Problem Reconciliation Problems Reviewed?: Yes
== END 2020-12-18 12:45 | disposition home or self-care (01) | DRG 788 ==
LOC: OBOUT 09:34 → OB 09:34
PROVIDERS: Admitting Provider Obstetrics & Gynecology; PCP Family Medicine; Visit Provider Obstetrics & Gynecology
PROC: 10D00Z1 Extraction of Products of Conception, Low, Open Approach (ICD-10-PCS; CPT 59514; principal; 2020-12-16 11:00)
DX: O34.211 Maternal care for low transverse scar from previous cesarean delivery (principal); Z37.0 Single live birth; Z3A.37 37 weeks gestation of pregnancy; O99.344 Other mental disorders complicating childbirth; F41.9 Anxiety disorder, unspecified; O99.02 Anemia complicating childbirth; O99.62 Diseases of the digestive system complicating childbirth; K21.9 Gastro-esophageal reflux disease without esophagitis
CPT/HCPCS: 59514; 59025; 80048; 80305; 81001; 85014; 85018; 85025; 86850; 87086; 94761; C9290; C9803; G0283; J2405; U0003; U0005

== ENCOUNTER → 2021-02-18 12:18 | Outpatient (CLI) | payer OTHER, SELFPAY ==
[2021-02-18 12:53] LABS: Adenovirus,PCR Not Detected (NotDetected); Bordetella Pertussis Not Detected (NotDetected); Chlamydophila Pneumoniae, PCR Not Detected (NotDetected); Coronavirus 229E Not Detected (NotDetected); Coronavirus NL63 Not Detected (NotDetected); Coronavirus OC43 Not Detected (NotDetected); Coronovirus HKU1,PCR Not Detected (NotDetected); Human Metapneumovirus Not Detected (NotDetected); Influenza A, PCR Not Detected (NotDetected); Influenza AH1, 2009 Not Detected (NotDetected); Influenza AH1, PCR Not Detected (NotDetected); Influenza AH3,PCR Not Detected (NotDetected); Influenza B, PCR Not Detected (NotDetected); Mycoplasma Pneumoniae, PCR Not Detected (NotDetected); Parainfluenza 1, PCR Not Detected (NotDetected); Parainfluenza 2, PCR Not Detected (NotDetected); Parainfluenza 3, PCR Not Detected (NotDetected); Parainfluenza 4, PCR Not Detected (NotDetected); Respiratory Syncytial Virus Not Detected (NotDetected); Rhinovirus/Enterovirus Not Detected (NotDetected)
[2021-02-18 12:57] LABS: Basophils # 0.1 K/mm3 (0-0.2); Basophils % 0.7 % (0.1-2.0); Eosinophils # 0.2 K/mm3 (0.0-0.4); Eosinophils % 2.9 % (0.1-12.0); Hematocrit 39.5 % (37.0-47.0); Hemoglobin 12.4 g/dL (12.2-16.2); Lymphocytes # 0.9 K/mm3 (0.7-4.5); Lymphocytes % 12.8 % (10-50); Mean Corpuscular HGB Conc 31.4 g/dL (31.8-35.4); Mean Corpuscular Hemoglobin 26.2 pg (27.0-31.2); Mean Corpuscular Volume 83.6 fl (81-99); Mean Platelet Volume 7.5 fl (7.4-10.4); Monocytes # 0.5 K/mm3 (0.1-1.0); Neutrophils # 5.6 K/mm3 (1.8-7.8); Neutrophils % 76.7 % (37.0-80.0); Platelet Count 234 K/mm3 (142-424); Red Blood Count 4.72 M/mm3 (4.20-5.40); Red Cell Distribution Width 16.2 % (11.5-17.5); White Blood Count 7.3 K/mm3 (4.8-10.8)
[2021-02-18 14:45] LABS: Coronavirus 19, PCR Detected (NotDetected)
== END ==
PROVIDERS: PCP Physician Assistant; Visit Provider Physician Assistant
DX: U07.1 COVID-19 (principal)
CPT/HCPCS: 36415; 85025; 87581; 87632; 87798; C9803; U0003; U0005

== ENCOUNTER → 2021-09-01 10:56 | Outpatient (CLI) | payer BC, SELFPAY | PROVIDERS: PCP Family Medicine; Visit Provider Physician Assistant | DX: Z20.822 Contact with and (suspected) exposure to COVID-19 (principal) | CPT/HCPCS: C9803; U0003; U0005 ==

== ENCOUNTER → 2021-09-09 13:09 | Outpatient (CLI) | payer BC, SELFPAY ==
--- NOTE | 2021-09-09 13:13 | US_ITS ---
FINAL REPORT TECHNIQUE: Sonographic images of the pelvis were obtained transvaginally. CLINICAL HISTORY: pelvic pain x's 1 month -- PP x's 9 months FINDINGS: The uterus is retroverted and retroflexed. It measures 7.2 x 4.4 x 6.1 cm. The endometrial stripe measures 7 mm. The myometrium is homogeneous. The cervix is within normal limits. The right ovary measures 1.7 x 3.5 x 2.1 cm. It is normal in appearance. The left ovary measures 1.5 x 3.1 x 1.6 cm. It is normal in appearance. Color imaging to the ovaries is within normal limits. There is no free fluid. IMPRESSION: Normal sonographic appearance to the uterus and ovaries for age. Reviewed, Interpreted and Dictated by America Kinney MD Transcribed by Arabella Lindquist Authenticated and [facility]
== END ==
PROVIDERS: PCP Family Medicine; Visit Provider Obstetrics & Gynecology
DX: R10.2 Pelvic and perineal pain (principal)
CPT/HCPCS: 76830

== ENCOUNTER 2022-02-07 09:50 | Emergency (ER) | payer BC, SELFPAY ==
[2022-02-07 10:53] VITALS: BP 121/76; PULSE 82; RESP 16; TEMP 36.9; O2SAT 100; BMI 32.9
[2022-02-07 11:10] LABS: UTC Influenza A Antigen Negative (Negative); UTC Strep Screen (Rapid) Negative (Negative)
[2022-02-07 11:11] LABS: UTC Influenza B Antigen Negative (Negative)
--- NOTE | 2022-02-07 11:12 | EXP.UTC ---
Discharge Plan Disposition Patient Disposition: Home, Self-Care Condition: Good Prescriptions Prescriptions: New azithromycin [Zithromax] 250 mg tablet 250 mg PO UD DOSE PK Qty: 6 0RF Rx Instructions: Take two (2) tablets today, then one (1) tablet days #2 thru #5 jfwzyzaszpayawz-kfrkjejwn-ID [Bromfed DM] 2-30-10 mg/5 mL Syrup 5 ml PO Q6H PRN (Reason: Cough) Qty: 240 0RF ondansetron 4 mg Tablet,Disintegrating 4 mg PO Q8H PRN (Reason: Nausea) Qty: 20 0RF No Action prenat.vits,karen,zhj-sfnk-fguma Tablet 1 tab PO DAILY sertraline [Zoloft] 50 mg tablet 50 mg PO DAILY Qty: 90 1RF Referrals Follow up/Referrals: Dilshad Nunn MD [Primary Care Provider] - See instructions Activity Restrictions/Add. Instructions Additional Instructions/Restrictions: Drink plenty of fluids. Take tylenol or ibuprofen for pain or fever. Take the medications as directed. Follow up with your regular doctor. GO TO THE ER FOR ANY WORSENING SYMPTOMS Clinical Impressions Clinical Impression: Acute viral syndrome, Acute bronchitis Stand Alone Forms Stand Alone Forms: Work/School Release Instructions Patient Instructions: Acute Bronchitis, DI for Viral Syndrome Discharge ED Provider: Troy Blake [facility] General Stated complaint: congestion, stomach pain, vomiting, runny nose, RUIZ Mode of Arrival: Ambulatory Source of Information: Patient Limitations: No Limitations Time Seen by Provider: 02/07/22 11:12 Description of Symptoms (Recalled from Triage Doc. by RN): pt comes in with c/o cough, congestion, upset stomach, vomitting, diarrhea, sore throat. symptoms began 3 days ago HEENT Symptoms (Recalled from RN notes): Yes Resp Symptoms (Recalled from RN notes): Yes Skin Symptoms (Recalled from RN notes): No MS Symptoms (Recalled from RN notes): No Functional Status (Recalled from RN notes): n/a History of Present Illness Provider Complaint: She c/o having a cough, congestion, upset stomach, vomiting, diarrhea, sore throat for the past 3 days ago Related Data Home Medications Medication Instructions Recorded Confirmed prenat.vits,karen,rzo-ueca-kfexw 1 tab PO DAILY 01/27/21 08/26/21 Previous Rx's Medication Instructions Recorded sertraline 50 mg tablet (Zoloft) 50 mg PO DAILY #90 tabs 08/26/21 azithromycin 250 mg tablet 250 mg PO UD DOSE PK #6 tabs 02/07/22 (Zithromax) buvspuxgmzjczob-adctznlayktvqiy-HY 5 ml PO Q6H PRN Cough #240 mL 02/07/22 2 mg-30 mg-10 mg/5 mL oral syrup (Bromfed DM) ondansetron 4 mg disintegrating 4 mg PO Q8H PRN Nausea #20 tabs 02/07/22 tablet Allergies Allergy/AdvReac Type Severity Reaction Status Date / Time cephalexin [From Keflex] AdvReac Verified 02/07/22 10:57 Worker's Comp Is this a Worker's Comp case?: No [facility] Disclaimer: The information contained in this section may have been updated after the patient was seen, as this information can be updated by other users. Medical History Dyspnea Social History Smoking Status: Never smoker alcohol intake: never substance use type: denies use current occupational status: unemployed Travel in the last 8 weeks: None household members: spouse housing: house current occupational exposures/hazards: No ROS Obtained: Yes All systems reviewed & no additional complaints except as documented Constitutional Constitutional: Reports chills and Reports fever(s) Eyes Eyes: Denies eye discharge ENT Ears, Nose, Mouth, and Throat: Reports as per HPI Cardiovascular Cardiovascular: Denies chest pain Respiratory Respiratory: Denies shortness of breath, Reports chest congestion, Reports cough, Denies stridor and Denies wheezing Gastrointestinal Gastrointestingal: Reports nausea; Denies abdominal pain, constipation, cramping, diarrhea or vomiting Musculoskeletal Musculoskeletal:
[2022-02-07 12:28] VITALS: BP 121/76; PULSE 82; RESP 16; TEMP 36.9
[2022-02-07 12:35] LABS: Adenovirus,PCR Not Detected (NotDetected); Bordetella Pertussis Not Detected (NotDetected); Chlamydophila Pneumoniae, PCR Not Detected (NotDetected); Coronavirus 19, PCR Not Detected (NotDetected); Coronavirus 229E Not Detected (NotDetected); Coronavirus OC43 Not Detected (NotDetected); Coronovirus HKU1,PCR Not Detected (NotDetected); Human Metapneumovirus Not Detected (NotDetected); Influenza A, PCR Not Detected (NotDetected); Influenza AH1, 2009 Not Detected (NotDetected); Influenza AH1, PCR Not Detected (NotDetected); Influenza AH3,PCR Not Detected (NotDetected); Influenza B, PCR Not Detected (NotDetected); Mycoplasma Pneumoniae, PCR Not Detected (NotDetected); Parainfluenza 1, PCR Not Detected (NotDetected); Parainfluenza 2, PCR Not Detected (NotDetected); Parainfluenza 3, PCR Not Detected (NotDetected); Parainfluenza 4, PCR Not Detected (NotDetected); Respiratory Syncytial Virus Not Detected (NotDetected); Rhinovirus/Enterovirus Not Detected (NotDetected)
[2022-02-07 20:23] LABS: Coronavirus NL63 Detected (NotDetected)
== END 2022-02-07 12:29 | disposition home or self-care (01) ==
PROVIDERS: Emergency Provider Nurse Practitioner Family; PCP Family Medicine
DX: U07.1 COVID-19 (principal)
CPT/HCPCS: 87581; 87632; 87798; 87804; 87880; 99212; C9803; G0463; U0003; U0005

== ENCOUNTER 2022-05-19 10:21 | Emergency (ER) | payer BC, SELFPAY ==
[2022-05-19 10:35] VITALS: BP 140/85; PULSE 86; RESP 16; TEMP 37.2; O2SAT 100; BMI 27.9
--- NOTE | 2022-05-19 11:17 | EXP.UTC ---
Discharge Plan Disposition Patient Disposition: Home, Self-Care Condition: Good Prescriptions Prescriptions: New montelukast [Singulair] 10 mg tablet 10 mg PO DAILY Qty: 30 2RF benzonatate 100 mg capsule 100 mg PO TID PRN (Reason: cough) Qty: 30 0RF Referrals Follow up/Referrals: Dilshad Nunn MD [Primary Care Provider] - See instructions Clinical Impressions Clinical Impression: Acute upper respiratory infection Instructions Patient Instructions: DI for Viral Upper Respiratory Infection -- Adult Discharge ED Provider: Jessica Rodriguez [facility] HPI General Stated complaint: resp problem Mode of Arrival: Ambulatory Source of Information: Patient Limitations: No Limitations Time Seen by Provider: 05/19/22 10:58 Description of Symptoms (Recalled from Triage Doc. by RN): PATIENT C/O CHEST CONGESTION, SOA, AND NO ENERGY HEENT Symptoms (Recalled from RN notes): No Resp Symptoms (Recalled from RN notes): Yes Skin Symptoms (Recalled from RN notes): No MS Symptoms (Recalled from RN notes): No Functional Status (Recalled from RN notes): WNL History of Present Illness Provider Complaint: Pt states that she just got back from a trip to [place] and became ill. She reports clear sinus drainage and congestion, cough with white to clear sputum, and occasional SOA. She states that she uses her inhaler as needed as she has asthma. Related Data Previous Rx's Medication Instructions Recorded benzonatate 100 mg capsule 100 mg PO TID PRN cough #30 caps 05/19/22 montelukast 10 mg tablet 10 mg PO DAILY #30 tabs 05/19/22 (Singulair) Allergies Allergy/AdvReac Type Severity Reaction Status Date / Time cephalexin [From Keflex] AdvReac Verified 02/07/22 10:57 Worker's Comp Is this a Worker's Comp case?: No [facility] Disclaimer: The information contained in this section may have been updated after the patient was seen, as this information can be updated by other users. Medical History Dyspnea Social History Smoking Status: Never smoker alcohol intake: never substance use type: denies use current occupational status: unemployed Travel in the last 8 weeks: None household members: spouse housing: house current occupational exposures/hazards: No ROS Obtained: Yes All systems reviewed & no additional complaints except as documented Constitutional Constitutional: Reports fatigue Eyes Eyes: Reports system reviewed and no additional complaints, except as documented ENT Ears, Nose, Mouth, and Throat: Reports as per HPI, Reports nasal congestion, Reports nasal discharge and Reports sinus pressure Cardiovascular Cardiovascular: Reports system reviewed and no additional complaints, except as documented Respiratory Respiratory: Reports shortness of breath, Reports cough and Reports cough with sputum production Gastrointestinal Gastrointestingal: Reports system reviewed and no additional complaints, except as documented Genitourinary Female Genitourinary: Reports system reviewed and no additional complaints, except as documented Musculoskeletal Musculoskeletal: Reports system reviewed and no additional complaints, except as documented Integumentary/Breasts Skin/Breast: Reports system reviewed and no additional complaints, except as documented Neurologic Neurologic: Reports system reviewed and no additional complaints, except as documented Endocrine Endocrine: Reports system reviewed and no additional complaints, except as documented and Reports fatigue Hematologic/Lymphatic Henatologic/Lymphatic: Reports system reviewed and no additional complaints, except as documented Allergic/Immunologic Allergic/Immunologic: Reports system reviewed and no additional complaints, except as documented and Reports seasonal rhinorrhea Physical Exam General General appearance: alert and in no apparent distress Head
[2022-05-19 11:24] VITALS: BP 140/85; PULSE 86; RESP 16; TEMP 37.2; O2SAT 100
== END 2022-05-19 11:27 | disposition home or self-care (01) ==
PROVIDERS: Emergency Provider Nurse Practitioner Family; PCP Family Medicine
DX: J06.9 Acute upper respiratory infection, unspecified (principal); J45.909 Unspecified asthma, uncomplicated
CPT/HCPCS: 99212; 99214; G0463

== ENCOUNTER → 2022-12-19 12:05 | Outpatient (CLI) | payer BC, SELFPAY ==
--- NOTE | 2022-12-19 12:10 | XR_ITS ---
FINAL REPORT CLINICAL HISTORY: POSITIVE CAROLINE TEST OF RT KNEE,RT KNEE PAIN FINDINGS: AP, lateral and oblique views of the right knee were obtained. There is no prior exam for comparison. There is no acute osseous abnormality of the right knee. The joint space is preserved. The soft tissues are normal. There is no joint effusion. IMPRESSION: No acute osseous abnormality of the right knee. Reviewed, Interpreted and Dictated by America Kinney MD Transcribed by Arabella Lindquist Authenticated and [facility]
== END ==
PROVIDERS: PCP Family Medicine; Visit Provider Family Medicine
DX: M25.561 Pain in right knee (principal); S83.206A Unspecified tear of unspecified meniscus, current injury, right knee, initial encounter
CPT/HCPCS: 73562

== ENCOUNTER → 2023-01-11 13:58 | Outpatient (CLI) | payer BC, SELFPAY ==
[2023-01-11 15:37] LABS: HCG,Quantitative < 2 mIU/ml (0-5.42)
[2023-01-13 09:12] LABS: Prolactin 18.7 ng/mL (4.8-23.3)
== END ==
PROVIDERS: PCP Family Medicine; Visit Provider Obstetrics & Gynecology
DX: N92.6 Irregular menstruation, unspecified (principal)
CPT/HCPCS: 36415; 84146; 84702

== ENCOUNTER → 2023-01-19 13:17 | Outpatient (CLI) | payer BC, SELFPAY ==
--- NOTE | 2023-01-19 13:18 | US_ITS ---
PROCEDURE INFORMATION: Exam: US Right Breast, Complete US Left Breast, Complete Exam date and time: 01/19/2023 1:33 PM Age: 32 years old Clinical indication: Nipple discharge; Bilateral TECHNIQUE: Imaging protocol: Complete ultrasound of all four quadrants of the right breast and the retroareolar regions, including ultrasound of the axilla when performed. Complete ultrasound of all four quadrants of the left breast and the retroareolar regions, including ultrasound of the axilla when performed. COMPARISON: No relevant prior studies available. FINDINGS: Breast: No solid or cystic lesions. Other findings: Sonographic images of both breasts including the retroareolar regions, all 4 quadrants and the axilla do not demonstrate any solid or cystic masses. No architectural distortion or acoustical shadowing. No skin thickening or axillary adenopathy. IMPRESSION: No sonographic evidence of malignancy. If the nipple discharge is spontaneous and clear and/or hemorrhagic, further evaluation with breast MRI and/or mammography may prove useful. ASSESSMENT: BI-RADS Category 1: Negative
== END ==
LOC: RAD 13:18
PROVIDERS: PCP Family Medicine; Visit Provider Obstetrics & Gynecology
DX: N64.52 Nipple discharge (principal)
CPT/HCPCS: 76641

== ENCOUNTER 2023-01-21 11:37 | Emergency (ER) | payer BC, SELFPAY ==
[2023-01-21 11:50] VITALS: BP 119/74; PULSE 90; RESP 18; TEMP 37.1; O2SAT 99; BMI 28.5
--- NOTE | 2023-01-21 12:15 | EXP.UTC ---
Discharge Plan Disposition Patient Disposition: Home, Self-Care Condition: Good Prescriptions Prescriptions: New fluticasone propionate [Flonase Allergy Relief] 50 mcg/actuation spray,suspension 2 spray intranasal DAILY Qty: 16 0RF Rx Instructions: administer into each nostril daily azithromycin [Zithromax Z-Jaydon] 250 mg tablet See Rx Instructions .ROUTE .COMPLEX 5 Days Qty: 6 0RF Rx Instructions: For 250 mg dose pack: take 500 mg today (day 1), then 250 mg for 4 days (days 2-5) methylprednisolone [Medrol (Jaydon)] 4 mg tablets,dose pack See Rx Instructions .Route .COMPLEX 6 Days Qty: 21 0RF Rx Instructions: taper pack; No Action metoprolol succinate 50 mg tablet extended release 24 hr 50 mg PO DAILY sertraline [Zoloft] 50 mg tablet 50 mg PO DAILY Qty: 30 11RF montelukast [Singulair] 10 mg tablet 10 mg PO DAILY Qty: 30 2RF Referrals Follow up/Referrals: Dilshad Nunn MD [Primary Care Provider] - See instructions Activity Restrictions/Add. Instructions Additional Instructions/Restrictions: *Monitor Temp, Over the counter Motrin or Tylenol as directed/as needed Tylenol every 4 hours and Motrin every 6 hours (as long as your family doctor has told you that you can take it) for fever or pain. and straight to ER if unable to lower temp less than 101.0 after medication given *Warm salt water gargles may help to soothe the throat *Throat Lozenges? *Warm fluids like tea with honey may help to soothe the throat? *Sleep elevated *Humidifier/Vaporizer Take medication as prescribed Follow up IMMEDIATELY for new or worsening symptoms or no Noticeable improvement over the next 48-72 hours. 911 for difficulty breathing or swallowing Clinical Impressions Clinical Impression: Sinusitis Qualifiers: Sinusitis location: unspecified location Chronicity: unspecified Qualified Code(s): J32.9 - Chronic sinusitis, unspecified Instructions Patient Instructions: Sinusitis, DI for Sinusitis Discharge ED Provider: Sarah Price [facility] General Stated complaint: cough congestion Mode of Arrival: Ambulatory Source of Information: Patient Limitations: No Limitations Time Seen by Provider: 01/21/23 12:15 Description of Symptoms (Recalled from Triage Doc. by RN): PATIENT C/O CONGESTION, COUGH, HEADACHE, WEAKNESS, AND SORE THROAT X 8 DAYS HEENT Symptoms (Recalled from RN notes): Yes Resp Symptoms (Recalled from RN notes): Yes Skin Symptoms (Recalled from RN notes): No MS Symptoms (Recalled from RN notes): No Functional Status (Recalled from RN notes): WNL History of Present Illness Provider Complaint: Patient states that she has been sick for over a week with sinus pain and pressure, sore throat, cough and sinus headache States that today she was not feeling any better so she came in to get checked out Related Data Home Medications Medication Instructions Recorded Confirmed metoprolol succinate 50 mg 50 mg PO DAILY 12/22/22 01/21/23 tablet,extended release 24 hr Previous Rx's Medication Instructions Recorded montelukast 10 mg tablet 10 mg PO DAILY #30 tabs 05/19/22 (Singulair) sertraline 50 mg tablet (Zoloft) 50 mg PO DAILY #30 tabs 12/22/22 azithromycin 250 mg tablet See Rx Instructions PO .COMPLEX 5 01/21/23 (Zithromax Z-Jaydon) days #6 tabs fluticasone propionate 50 2 spray intranasal DAILY #16 grams 01/21/23 mcg/actuation nasal spray,suspension (Flonase Allergy Relief) methylprednisolone 4 mg tablets in See Rx Instructions .Route 01/21/23 a dose pack (Medrol (Jaydon)) .COMPLEX 6 days #21 tabs Allergies Allergy/AdvReac Type Severity Reaction Status Date / Time cephalexin [From Keflex] AdvReac Verified 01/11/23 13:17 Worker's Comp Is this a Worker's Comp case?: No [facility] Disclaimer: The information contained in this section may have been updated after the patient was seen, as this information can be upd
[2023-01-21 12:40] VITALS: BP 119/74; PULSE 90; RESP 18; TEMP 37.1; O2SAT 99
[2023-01-21 12:41] LABS: UTC Pregnancy Test, Urine Negative (Negative)
== END 2023-01-21 12:46 | disposition home or self-care (01) ==
PROVIDERS: Emergency Provider Nurse Practitioner; PCP Family Medicine
DX: J01.90 Acute sinusitis, unspecified (principal); R05.9 Cough, unspecified; R51.9 Headache, unspecified; R09.81 Nasal congestion; R07.0 Pain in throat; R53.1 Weakness
CPT/HCPCS: 81025; 99212; 99214; G0463

== ENCOUNTER → 2023-02-09 00:07 | Outpatient (CLI) | payer BC, SELFPAY ==
[2023-02-08 17:54] LABS: Adenovirus,PCR Not Detected (NotDetected); Coronavirus 19, PCR Not Detected (NotDetected); Coronavirus 229E Not Detected (NotDetected); Coronavirus NL63 Not Detected (NotDetected); Coronavirus OC43 Not Detected (NotDetected); Coronovirus HKU1,PCR Not Detected (NotDetected); Human Metapneumovirus Not Detected (NotDetected); Influenza A, PCR Not Detected (NotDetected); Influenza AH1, 2009 Not Detected (NotDetected); Influenza AH1, PCR Not Detected (NotDetected); Influenza AH3,PCR Not Detected (NotDetected); Influenza B, PCR Not Detected (NotDetected); Parainfluenza 1, PCR Not Detected (NotDetected); Parainfluenza 2, PCR Not Detected (NotDetected); Parainfluenza 3, PCR Not Detected (NotDetected); Parainfluenza 4, PCR Not Detected (NotDetected); Respiratory Syncytial Virus Not Detected (NotDetected); Rhinovirus/Enterovirus Not Detected (NotDetected)
== END ==
LOC: LAB.DROPOF 00:08
PROVIDERS: PCP Family Medicine; Visit Provider Family Medicine
DX: R05.9 Cough, unspecified (principal)
CPT/HCPCS: 87581; 87632; 87635; 87798

== ENCOUNTER 2023-05-22 13:19 | Outpatient (CLI) | payer BC, SELFPAY ==
[2023-05-22 15:16] LABS: HCG,Quantitative 70 mIU/ml (0-5.42)
[2023-05-24 09:09] LABS: Progesterone 10.2 ng/mL (.)
== END 2023-05-22 23:59 | disposition home or self-care (01) ==
LOC: LAB 13:20
PROVIDERS: PCP Family Medicine; Visit Provider Obstetrics & Gynecology
DX: N92.6 Irregular menstruation, unspecified (principal)
CPT/HCPCS: 36415; 84144; 84702

== ENCOUNTER 2023-05-24 08:43 | Outpatient (CLI) | payer BC, SELFPAY ==
[2023-05-24 10:50] LABS: HCG,Quantitative 149 mIU/ml (0-5.42)
== END 2023-05-24 23:59 ==
LOC: LAB 08:43
PROVIDERS: PCP Family Medicine; Visit Provider Obstetrics & Gynecology
DX: Z32.01 Encounter for pregnancy test, result positive (principal)
CPT/HCPCS: 36415; 84702

== ENCOUNTER 2023-06-11 13:59 | Outpatient (CLI) | payer BC, SELFPAY ==
[2023-06-11 16:12] LABS: HCG,Quantitative 2171 mIU/ml (0-5.42)
[2023-06-14 15:19] LABS: Parvovirus B19, IgG 4.5 index (0.0-0.8); Parvovirus B19, IgM 20.4 index (0.0-0.8)
== END 2023-06-11 23:59 | disposition home or self-care (01) ==
LOC: LAB 14:00
PROVIDERS: PCP Family Medicine; Visit Provider Obstetrics & Gynecology
DX: O46.91 Antepartum hemorrhage, unspecified, first trimester (principal); Z3A.01 Less than 8 weeks gestation of pregnancy
CPT/HCPCS: 36415; 84702; 86747

== ENCOUNTER 2023-06-12 11:26 | Outpatient (CLI) | payer BC, SELFPAY ==
[2023-06-12 12:02] LABS: Basophils # 0.1 K/mm3 (0-0.2); Basophils % 0.8 % (0.1-2.0); Eosinophils # 0.3 K/mm3 (0.0-0.4); Eosinophils % 3.6 % (0.1-12.0); Hematocrit 40.9 % (37.0-47.0); Lymphocytes # 0.7 K/mm3 (0.7-4.5); Lymphocytes % 10.3 % (10-50); Mean Corpuscular HGB Conc 31.8 g/dL (31.8-35.4); Mean Corpuscular Volume 88.1 fl (81-99); Mean Platelet Volume 7.7 fl (7.4-10.4); Monocytes # 0.4 K/mm3 (0.1-1.0); Neutrophils # 5.7 K/mm3 (1.8-7.8); Neutrophils % 80.5 % (37.0-80.0); Platelet Count 290 K/mm3 (142-424); Red Blood Count 4.64 M/mm3 (4.20-5.40); Red Cell Distribution Width 13.6 % (11.5-17.5); White Blood Count 7.1 K/mm3 (4.8-10.8)
[2023-06-12 12:29] LABS: Alanine Aminotransferase 35 U/L (12-78); Albumin Level 4.4 g/dl (3.5-5.0); Albumin/Globulin Ratio 1.6 (1.1-1.8); Alkaline Phosphatase 53 U/L (38-126); Anion Gap 10.2 mEq/L (5-15); Aspartate Amino Transferase 30 U/L (14-36); Bilirubin,Total 0.6 mg/dl (0.2-1.3); Blood Urea Nitrogen 17 mg/dl (7-17); Calcium 9.3 mg/dl (8.4-10.2); Carbon Dioxide 25 mmol/L (22.0-30.0); Chloride 109 mmol/L (98-107); Estimated Glomerular Filt Rate 96 ml/min (>60); GFR (African American) 117 ML/MIN (>60); Globulin 2.7 g/dL (1.3-3.2); Glucose 95 mg/dl (74-100); Potassium 4.2 mmoL/L (3.5-5.1); Sodium 140 mmol/L (136-145); Total Protein,Serum 7.1 g/dl (6.3-8.2)
[2023-06-12 12:58] LABS: HCG,Quantitative 1530 mIU/ml (0-5.42)
== END 2023-06-12 23:59 | disposition home or self-care (01) ==
LOC: LAB 11:27
PROVIDERS: PCP Family Medicine; Visit Provider Obstetrics & Gynecology
DX: O46.91 Antepartum hemorrhage, unspecified, first trimester (principal); Z3A.01 Less than 8 weeks gestation of pregnancy
CPT/HCPCS: 36415; 80053; 84702; 85025; 86850

== ENCOUNTER 2023-10-23 18:34 | Emergency (ER) | payer BC, SELFPAY ==
[2023-10-23 19:50] VITALS: BP 124/93; PULSE 74; RESP 18; TEMP 37.3; O2SAT 99; BMI 26.9
--- NOTE | 2023-10-23 20:34 | ED_ITS ---
Discharge Plan Disposition Patient Disposition: Home, Self-Care Condition: Good Prescriptions Prescriptions: No Action metoprolol succinate 50 mg tablet extended release 24 hr 50 mg PO DAILY sertraline [Zoloft] 50 mg tablet 50 mg PO DAILY Qty: 30 11RF Classic 28 mg iron- 800 mcg tablet 1 tab PO DAILY ibuprofen 800 mg tablet 800 mg PO Q8H Qty: 30 0RF hydrocodone-acetaminophen 5-325 mg tablet 1 tab PO Q8H PRN (Reason: pain) Qty: 8 0RF montelukast [Singulair] 10 mg tablet 10 mg PO DAILY Qty: 30 2RF fluticasone propionate [Flonase Allergy Relief] 50 mcg/actuation spray,suspension 2 spray intranasal DAILY Qty: 16 0RF Rx Instructions: administer into each nostril daily Referrals Follow up/Referrals: Dilshad Nunn MD [Primary Care Provider] - See instructions Activity Restrictions/Add. Instructions Additional Instructions/Restrictions: Go home lay down and sleep off remainder of migraine headache If you need something else take Tylenol Go straight to ER if any life threatening symptoms Clinical Impressions Clinical Impression: Migraine headache Qualifiers: Migraine type: unspecified Status migrainosus presence: without status migrainosus Intractability: not intractable Qualified Code(s): G43.909 - Migraine, unspecified, not intractable, without status migrainosus Instructions Patient Instructions: Migraine -- Adult, DI for Migraine Print Language Print Language: Telugu Discharge ED Provider: Sarah Price [facility] [place] HPI General Stated complaint: Migraine,Neck pain, no injury Mode of Arrival: Ambulatory Source of Information: Patient Limitations: No Limitations Time Seen by Provider: 10/23/23 20:35 Description of Symptoms (Recalled from Triage Doc. by RN): PATIENT C/O MIGRAINE AND NECK PAIN THAT STARTED 2 DAYS AGO. PATIENT DENIES ANY VISION CHANGES OR DIZZINESS. HEENT Symptoms (Recalled from RN notes): Yes Resp Symptoms (Recalled from RN notes): No Skin Symptoms (Recalled from RN notes): No MS Symptoms (Recalled from RN notes): Yes Functional Status (Recalled from RN notes): WNL History of Present Illness Provider Complaint: Patient states that she has a hx of migraines States she started with headache a couple days ago that was in the back of her neck and came up the back of her head States she has taken OTC medications to get rid of it but hasnt helped and has had to come in before and get the migraine cocktail to get rid of it Related Data Home Medications ?Medication ?Instructions ?Recorded ?Confirmed metoprolol succinate 50 mg 50 mg PO DAILY 12/22/22 06/12/23 tablet,extended release 24 hr vits no.126-ferrous fum 1 tab PO DAILY 06/11/23 06/12/23 28 mg iron-folic acid 800 mcg tablet (Classic ) Previous Rx's ?Medication ?Instructions ?Recorded montelukast 10 mg tablet 10 mg PO DAILY #30 tabs 05/19/22 (Singulair) sertraline 50 mg tablet (Zoloft) 50 mg PO DAILY #30 tabs 12/22/22 fluticasone propionate 50 2 spray intranasal DAILY #16 grams 01/21/23 mcg/actuation nasal spray,suspension (Flonase Allergy Relief) hydrocodone 5 mg-acetaminophen 325 1 tab PO Q8H PRN pain #8 tabs 06/13/23 mg tablet ibuprofen 800 mg tablet 800 mg PO Q8H #30 tabs 06/13/23 Allergies Allergy/AdvReac Type Severity Reaction Status Date / Time cephalexin [From Keflex] AdvReac Verified 06/12/23 10:34 Worker's Comp Is this a Worker's Comp case?: No [facility] Disclaimer: The information contained in this section may have been updated after the patient was seen, as this information can be updated by other users. Medical History (Updated 10/23/23 @ 21:00 by Sarah Price APRN) Spontaneous miscarriage Vaginal bleeding in Mitral valve regurgitation Anxiety Family history of ovarian cancer Family history of breast cancer delivery delivered Dyspnea Surgical History History of section Family History Other Anemia Asthma Cancer Diabetes FHx: mental illness Heart attack Hyperlipidemia Hypertension Stroke Substance abuse Thyroid disorder Social History Smoking Status: Never smoker alcohol intake: never substance use type: denies use current occupational status: unemployed Travel in the last 8 weeks: None household members: spouse housing: house current occupational exposures/hazards: No ROS Obtained: Yes All systems reviewed & no additional complaints except as documented and Yes Systems reviewed as appropriate & no additional complaints except as documented Constitutional Constitutional: Reports system reviewed and no additional complaints, except as documented, Reports as per HPI and Reports headache(s) Eyes Eyes: Reports system reviewed and no additional complaints, except as documented, Reports as per HPI, Denies blind spots, Denies blurry vision, Denies change in vision, Denies sensitivity to light and Denies tunnel vision ENT Ears, Nose, Mouth, and Throat: Reports headache(s) Neurologic Neurologic: Reports headache(s) Physical Exam General General appearance: alert and in no apparent distress Eye Eye exam: Present normal appearance, PERRL and EOMI ENT ENT exam: Present mucous membranes moist Respiratory Respiratory exam: Present normal lung sounds bilaterally; Absent respiratory distress or wheezes Cardiovascular Cardiovascular exam: Present regular rate, normal rhythm and normal heart sounds Abdominal Exam Abdominal exam: Present soft and normal bowel sounds; Absent distention or tenderness Neurological Exam Neurological exam: Present alert, oriented X3 and normal gait Medical Decision Making Kameron Inquiry Pt receiving controlled substance: No Kameron was queried for this patient: No Vital Signs: 10/23/23 19:50 Temperature 99.2 F Temperature Source Oral Pulse Rate [Left Brachial] 74 Respiratory Rate 18 Blood Pressure [Left Arm] 124/93 H Blood Pressure Mean [Left Arm] 103 Blood Pressure Source [Left Arm] Automatic Cuff Blood Pressure Position [Left Arm] Sitting 02 Sat by Pulse Oximetry 99 Oxygen Delivery Method Room Air Medical Decision Narrative: Patient denies on her period now Patient states that migraine is starting to ease up with Dc home with mother
[2023-10-23] MEDS: diphenhydrAMINE 50MG/ML VIAL 25 MG IM (20:50)
[2023-10-23] MEDS: ONDANSETRON 4MG ODT 4 MG SL (20:50)
[2023-10-23] MEDS: KETOROLAC 60MG/2ML VIAL 60 MG IM (20:50)
[2023-10-23 21:00] VITALS: BP 124/93; PULSE 74; RESP 18; TEMP 37.3; O2SAT 99
== END 2023-10-23 21:08 | disposition home or self-care (01) ==
PROVIDERS: Emergency Provider Nurse Practitioner; PCP Family Medicine
DX: G43.909 Migraine, unspecified, not intractable, without status migrainosus (principal)
CPT/HCPCS: 96372; 99212; 99214; G0463; J1200; J1885; Q0162

== ENCOUNTER 2023-10-25 16:41 | Outpatient (CLI) | payer BC, SELFPAY ==
[2023-10-25 17:09] LABS: Basophils # 0.1 K/mm3 (0-0.2); Basophils % 1.3 % (0.1-2.0); Eosinophils # 0.3 K/mm3 (0.0-0.4); Eosinophils % 3.1 % (0.1-12.0); Hematocrit 40.8 % (37.0-47.0); Hemoglobin 12.7 g/dL (12.2-16.2); Lymphocytes # 2.2 K/mm3 (0.7-4.5); Mean Corpuscular HGB Conc 31.1 g/dL (31.8-35.4); Mean Corpuscular Hemoglobin 27.4 pg (27.0-31.2); Mean Corpuscular Volume 88.2 fl (81-99); Mean Platelet Volume 8.2 fl (7.4-10.4); Monocytes # 0.5 K/mm3 (0.1-1.0); Neutrophils # 4.9 K/mm3 (1.8-7.8); Neutrophils % 61.5 % (37.0-80.0); Platelet Count 329 K/mm3 (142-424); Red Blood Count 4.63 M/mm3 (4.20-5.40)
[2023-10-25 19:07] LABS: Alanine Aminotransferase 27 U/L (12-78); Albumin Level 4.1 g/dl (3.5-5.0); Albumin/Globulin Ratio 1.3 (1.1-1.8); Alkaline Phosphatase 48 U/L (38-126); Anion Gap 8.5 mEq/L (5-15); Aspartate Amino Transferase 32 U/L (14-36); Bilirubin,Total 0.4 mg/dl (0.2-1.3); Blood Urea Nitrogen 22 mg/dl (7-17); Calcium 9.4 mg/dl (8.4-10.2); Carbon Dioxide 27 mmol/L (22.0-30.0); Chloride 108 mmol/L (98-107); Estimated Glomerular Filt Rate 96 ml/min (>60); GFR (African American) 116 ML/MIN (>60); Globulin 3.1 g/dL (1.3-3.2); Glucose 91 mg/dl (74-100); Potassium 4.5 mmoL/L (3.5-5.1); Sodium 139 mmol/L (136-145); Total Protein,Serum 7.2 g/dl (6.3-8.2)
[2023-10-27 18:11] LABS: Deamidated Gliadin Abs, IgA 3 units (0-19); Deamidated Gliadin Abs, IgG 2 units (0-19); Tissue Transglutaminase IgA Ab <2 U/mL (0-3); Tissue Transglutaminase IgG Ab 5 U/mL (0-5)
[2023-10-29 14:10] LABS: Endomysial IgA Antibody Negative (Negative)
[2023-10-31 08:21] LABS: Reticulin IgA Antibody Negative titer (Neg:<1:2.5)
[2023-11-02 03:51] LABS: F001-IgE Egg White <0.10 kU/L (Class 0); F002-IgE Milk <0.10 kU/L (Class 0); F003-IgE Codfish <0.10 kU/L (Class 0); F004-IgE Wheat <0.10 kU/L (Class 0); F010-IgE Sesame Seed <0.10 kU/L (Class 0); F013-IgE Peanut <0.10 kU/L (Class 0); F014-IgE Soybean <0.10 kU/L (Class 0); F024-IgE Shrimp <0.10 kU/L (Class 0); F256-IgE Walnut <0.10 kU/L (Class 0); F338-IgE Scallop <0.10 kU/L (Class 0)
== END 2023-10-25 23:59 | disposition home or self-care (01) ==
PROVIDERS: PCP Family Medicine; Visit Provider Physician Assistant
DX: K52.9 Noninfective gastroenteritis and colitis, unspecified (principal)
CPT/HCPCS: 36415; 80053; 83516; 85025; 86003; 86008; 86255; 86256

== ENCOUNTER 2023-10-30 07:26 | Outpatient (CLI) | payer BC, SELFPAY ==
--- NOTE | 2023-10-30 07:34 | US_ITS ---
FINAL REPORT CLINICAL HISTORY: PAIN FINDINGS: RIGHT UPPER QUADRANT ULTRASOUND Sonographic images of the right upper quadrant were obtained. The pancreas is partially obscured.The liver has an unremarkable appearance. There is a trace amount of sludge in the gallbladder. The common duct measures 3 mm. Limited images of the right kidney are normal. IMPRESSION: Gallbladder sludge. Reviewed, Interpreted and Dictated by Daniel Raymundo MD Transcribed by Thea Bustos Authenticated and [facility]
== END 2023-10-30 23:59 | disposition home or self-care (01) ==
PROVIDERS: PCP Family Medicine; Visit Provider Physician Assistant
DX: R10.11 Right upper quadrant pain (principal)
CPT/HCPCS: 76705

== ENCOUNTER 2023-11-13 10:18 | Outpatient (CLI) | payer BC, SELFPAY ==
--- NOTE | 2023-11-13 10:23 | NM_ITS ---
FINAL REPORT CLINICAL HISTORY: GALLBLADDER SLUDGE 10:50AM 7.91 MCI TC CHOLETEC 1.7 MCG CCK MODERATE PAIN WITH CCK COMPARISON: None FINDINGS: Sequential anterior projection images of the abdomen were obtained after the intravenous injection of 7.91 mCi technetium 99m Choletec. There is normal uptake of radiotracer by the liver. The bile ducts are visualized by 30 minutes. Gallbladder activity is seen by 60 minutes. Bowel activity is noted by 30 minutes. After 1 hour, 1.7 ?g of CCK was injected intravenously for calculation of gallbladder ejection fraction. The gallbladder ejection fraction is 25%, which is abnormally depressed. IMPRESSION: No evidence of cystic duct or bile duct obstruction. Abnormally depressed gallbladder ejection fraction of 25%. Reviewed, Interpreted and Dictated by Daniel Raymundo MD Transcribed by Dinorah Hyatt Authenticated and [facility]
[2023-11-13] MEDS: SODIUM CHLORIDE 0.9% 10ML SYR (RAD ONLY) 10 ML IV (12:55)
[2023-11-13] MEDS: SINCALIDE 1.7 MCG in 0.9 % SODIUM CHLORIDE 50 ML 100 MCG IV (12:55)
[2023-11-13] MEDS: ISOTOPE CHOLETECH;1 DOSE (UP TO 15 MCI) IV (12:55)
== END 2023-11-13 23:59 | disposition home or self-care (01) ==
LOC: RAD 10:19
PROVIDERS: PCP Physician Assistant; Visit Provider Physician Assistant
DX: K82.8 Other specified diseases of gallbladder (principal)
CPT/HCPCS: 78227; A9537; J2805

== ENCOUNTER 2023-11-28 13:26 | Outpatient (CLI) | payer BC, SELFPAY ==
[2023-11-28 14:00] VITALS: BMI 26.4
[2023-11-28 15:07] LABS: Anion Gap 5.5 mEq/L (5-15); Blood Urea Nitrogen 15 mg/dl (7-17); Calcium 9.2 mg/dl (8.4-10.2); Carbon Dioxide 28 mmol/L (22.0-30.0); Chloride 106 mmol/L (98-107); Creatinine Clearance Estimated 149 mL/min (50-200); Estimated Glomerular Filt Rate 96 ml/min (>60); GFR (African American) 116 ML/MIN (>60); Glucose 91 mg/dl (74-100); Potassium 3.5 mmoL/L (3.5-5.1); Sodium 136 mmol/L (136-145)
[2023-11-28 15:08] LABS: Basophils # 0.1 K/mm3 (0-0.2); Basophils % 1.6 % (0.1-2.0); Eosinophils # 0.3 K/mm3 (0.0-0.4); Eosinophils % 4.4 % (0.1-12.0); Hematocrit 42.3 % (37.0-47.0); Hemoglobin 14.2 g/dL (12.2-16.2); Lymphocytes # 2.5 K/mm3 (0.7-4.5); Lymphocytes % 33.3 % (10-50); Mean Corpuscular HGB Conc 33.5 g/dL (31.8-35.4); Mean Corpuscular Hemoglobin 28.7 pg (27.0-31.2); Mean Corpuscular Volume 85.7 fl (81-99); Mean Platelet Volume 8.1 fl (7.4-10.4); Monocytes # 0.4 K/mm3 (0.1-1.0); Monocytes % 5.6 % (1.7-9.3); Neutrophils # 4.1 K/mm3 (1.8-7.8); Neutrophils % 55.2 % (37.0-80.0); Platelet Count 269 K/mm3 (142-424); Red Blood Count 4.94 M/mm3 (4.20-5.40); White Blood Count 7.4 K/mm3 (4.8-10.8)
[2023-11-28 17:01] LABS: HCG Qualitative, Serum Negative (Negative)
== END 2023-11-28 23:59 | disposition home or self-care (01) ==
LOC: PREOP 13:27
PROVIDERS: Nurse Anesthetist, Certified Registered; PCP Family Medicine; Visit Provider Surgery
DX: Z01.812 Encounter for preprocedural laboratory examination (principal)
CPT/HCPCS: 80048; 84703; 85025

== ENCOUNTER 2023-11-30 06:01 | Day surgery (SDC) | payer BC, SELFPAY ==
[2023-11-28 13:58] VITALS: BMI 26.4
[2023-11-30] VITALS (11 sets, daily range): BP systolic 108–139; BP diastolic 63–88; PULSE 66–88; RESP 14–18; TEMP 36.2–43; O2SAT 98–100
[2023-11-30] MEDS: LACTATED RINGERS 1000ML 1,000 ML 25 ML IV (06:18)
[2023-11-30] MEDS: CLINDAMYCIN PHOSPHATE/D5W 900 MG/50 ML PIGGYBACK 100 MG IV (07:08)
[2023-11-30] MEDS: SODIUM CHLORIDE IRRIG SOLUTION 3,000 ML 25 ML IR (07:26)
[2023-11-30] MEDS: LIDOCAINE 1% 20ML MDV 40 ML (07:26)
--- NOTE | 2023-11-30 07:42 | EXP.ANES.CKL ---
[facility] Disclaimer: The information contained in this section may have been updated after the patient was seen, as this information can be updated by other users. Medical History Spontaneous miscarriage Vaginal bleeding in Mitral valve regurgitation Anxiety Family history of ovarian cancer maternal grandmother Family history of breast cancer paternal grandmother delivery delivered Dyspnea Surgical History History of section x 2 Family History Other Anemia Asthma Cancer Diabetes FHx: mental illness Heart attack Hyperlipidemia Hypertension Stroke Substance abuse Thyroid disorder Social History Smoking Status: Never smoker alcohol intake: never substance use type: denies use current occupational status: employed and unemployed Travel in the last 8 weeks: Inside the [place] household members: spouse housing: house current occupational exposures/hazards: No [facility] Anesthesia Checklist Patient Identification Patient Identification: Verbal (Name & ) Structural Data Admitted From: Home Planned Operative Procedure/s: lap brian Consent for Planned Operative Procedure(s) Verified: Yes NPO Status Verified Time NPO: 00:00 Additional verifications Anesthesia Reactions: No Hx Blood Transfusions: No Blood Transfusion Reaction: No Airway Assessment Mallampati Score:: Class II C-Spine Mobility Assessed: Yes TMJ Mobility Assessed: Yes Dentition: Good Dentition Neurological Assessment Level of Consciousness: Awake, Alert and Appropriate Anesthesia Plan Anesthesia Risk discussed: Yes Anesthesia Plan: Verified ASA Class: II Anesthesia Type: General
--- NOTE | 2023-11-30 08:30 | P.OP_ITS ---
Date of procedure: 11/30/23 Pre-op Diagnosis:: Biliary dyskinesia Post-op Diagnosis:: Chronic cholecystitis Procedure performed:: Laparoscopic cholecystectomy Surgeon:: Rusty Mao MD [employer] CERTIFIED POWERPLANT MECHANIC:: Terrance Lay Anesthesia: GETA Estimated blood loss (mL): 15 Operative findings:: Fairly severe pericholecystic fat stranding Significant infundibular thickening Operative note:: After informed consent was obtained, the patient was taken to the operating room and placed in the supine position. General anesthesia was induced and the abdomen was prepped and draped in a sterile fashion. After infiltration with local anesthetic an infraumbilical incision was made. A Veress needle was placed in position. The abdomen was insufflated. A 5 mm optical trocar was placed in position. Under direct visualization, a 12 mm trocar was placed in the subxiphoid position and 2 additional 5 mm trocars were placed in the right upper quadrant. The gallbladder was elevated up and over the liver margin. The tissue around the cystic duct was carefully dissected. 3 clips were placed proximally and the duct was transected with harmonic jose. Harmonic jose were then utilized to dissect the gallbladder away from the liver margin with careful attention to the control of the cystic artery. The gallbladder was placed in a retrieval bag and removed through the subxiphoid trocar site. The right upper quadrant was thoroughly irrigated. No active bleeding or bile leak was noted. Fascia at the subxiphoid trocar site was reapproximated utilizing the NeoClose device. The remaining trocars were removed. All wounds were irri gated and skin was closed with 4-0 Monocryl in a subcuticular fashion. Steri- Strips were applied. The patient's anesthetic agents were reversed and extubation was completed prior to transfer to recovery in stable condition. Condition: stable Disposition: PACU Specimens:: Gallbladder and contents Complications:: No immediate
--- NOTE | 2023-11-30 08:41 | EXP.ANES.I ---
[facility] Anesthesia Record Part I Anesthesia Record I Intake, IV Amount: 1,800 Hydration: Adequate Estimated blood loss (mL): 0 Urine output (mL): 0 Blood Pressure: 127/80 SaO2: 98 Pulse Rate: 88 Airway Patency: Patent Respiratory Rate: 14 Temperature: 98 F Patient is:: Awake and Stable Stable to PACU at:: 08:40
[2023-11-30] MEDS: MORPHINE 2MG/ML SYRINGE 2 MG IV (08:51)
[2023-11-30] MEDS: MEPERIDINE 25MG/ML 1ML SYRINGE 25 MG IV (08:58)
--- NOTE | 2023-12-03 15:03 | EXP.ANES.II ---
[facility] Anesthesia Record Part II Anesthesia Record Part II Discharge Time: 09:10 Destination: Surgical Day Care (OP Surgery) PACU nurse assessment reviewed?: Yes Patient Condition:: Good Anesthesia Complications:: None Swallowing reflex intact?: Yes Airway Patency: Patent Cyanosis?: No Blood Pressure: 115/63 SaO2: 99 Respiratory Rate: 16 Pulse Rate: 72 Temperature: 97.9 F Mental Status: Alert & Oriented Pain level:: 2 Nausea and/or vomitting:: None Intake, IV Amount: 0 Hydration: Adequate
[2023-12-03 15:04] VITALS: BP 115/63; PULSE 72; RESP 16; TEMP 36.6; O2SAT 99
== END 2023-11-30 09:41 | disposition home or self-care (01) ==
PROVIDERS: PCP Family Medicine; Visit Provider Surgery
PROC: 0FT44ZZ Resection of Gallbladder, Percutaneous Endoscopic Approach (ICD-10-PCS; CPT 47562; principal; 2023-11-30 07:30)
DX: K81.1 Chronic cholecystitis (principal); R10.11 Right upper quadrant pain
CPT/HCPCS: 47562; 96374; J1100; J1885; J2175; J2250; J2270; J2405; J3010; J7120

== ENCOUNTER 2023-12-11 12:51 | Outpatient (CLI) | payer BC, SELFPAY ==
--- NOTE | 2023-12-11 12:56 | CA_ITS ---
APPROVED REPORT EXAM: Comprehensive 2D, Doppler, and color-flow Echocardiogram Telemetry Tech: Imani James, RCS, RVS Ht: 5 ft 10 in Wt: 184lbs BSA: 2.02 BP: 130/80 mmHg Indications: Pre-op assessment, SOB, Murmur-MR/TR 2D Dimensions Aortic Root 2.96 cm LA Volume 39.40 mL Left Atrium 2.92 cm LA Volume Index [id number] mL/m2 (M/F) 16-34 LVOT 1.89 cm (M/F) 1.5-2.5 EF AP4 59.40 % GL Strain -23.9 % M-Mode Dimensions RVDd 2.34 cm (0.9-2.6) LVDd 5.12 cm (3.5-5.7) Ao Diam 3.03 cm (2.0-3.7) LVDs 3.25 cm (3.5-5.7) IVSd 0.94 cm (0.6-1.1) PWd 0.87 cm (0.6-1.1) EF (Teich) 66.00% EPSs 0.27 cm FS 36.50% EDV (Teich) 124.90 mL TAPSE 3.01 (<1.7) ESV (Teich) 42.50 mL LV Diastology E Decel Time 261 (160-240 msec) E/A Ratio 1.71 MED E' 10.6 (>= 7 cm/sec) MED A' 11.90 cm/s E'/MED E' Ratio 5.97 (<= 14) LAT E' 12.4 (>= 10 cm/sec) LAT A' 8.20 cm/s E/LAT E' Ratio 5.10 (<= 14) Aortic Valve LVOT Max 111.0 (70-110 cm/s) RONALD Index 1.20 cm2/m2 LVOT VTI 22.27 cm AoV Peak Shaw. 131.0 (50-130 cm/s) AO Mean GR. 3.50 (<5 mmHg) AO VTI 25.8 (18-25 cm) RONALD (VTI) 2.42 (2.5-4.5 cm2) Mitral Valve MV E Max Shaw. 63.0 (40-130 cm/s) MV A Velocity 37.0 (40-130 cm/s) E/A Ratio 1.71 MV Decel. Time 261 (160-240 ms) Tricuspid Valve TR P. Velocity 244.00 cm/s RAP Estimate 10.00 mmHg RVSP 33.80 mmHg Left Ventricle The left ventricle is normal size. The left ventricular systolic function is normal. The left ventricular ejection fraction is within the normal range. There is normal left ventricular wall thickness. There is normal LV segmental wall motion. The left ventricular diastolic function is normal. LVEF is 55%. Right Ventricle The right ventricle is normal size. The right ventricular systolic function is normal. Atria The left atrium size is normal. The right atrium size is normal. Color Doppler assessment to evaluate for interatrial shunt is not performed in the study Aortic Valve The aortic valve opens well. There is no aortic valvular stenosis. No aortic regurgitation is present. Mitral Valve The mitral valve is normal in structure. No evidence of mitral valve stenosis. Trace mitral regurgitation. Tricuspid Valve Tricuspid valve is grossly normal in structure and function. Mild tricuspid regurgitation. RVSP is 20-25 mmHg. Pulmonic Valve The pulmonary valve is normal in structure. Trace pulmonic regurgitation. Great Vessels The aortic root is normal in size. IVC is normal in size and collapses >50% with inspiration. Pericardium There is no pericardial effusion. Other Information Study Quality: Adequate Conclusion Normal biventricular systolic function. Mild TR. Electronically signed by : Payal Benitez MD 12/16/2023 02:32:41
== END 2023-12-11 23:59 | disposition home or self-care (01) ==
PROVIDERS: PCP Family Medicine; Visit Provider Nurse Practitioner
DX: I34.0 Nonrheumatic mitral (valve) insufficiency (principal); I07.1 Rheumatic tricuspid insufficiency
CPT/HCPCS: 93306

== ENCOUNTER 2024-02-04 10:10 | Outpatient (CLI) | payer BC, SELFPAY ==
[2024-02-04 19:38] LABS: Hematocrit 40.8 % (37.0-47.0); Hemoglobin 12.7 g/dL (12.2-16.2); Mean Corpuscular Hemoglobin 27.4 pg (27.0-31.2); Mean Corpuscular Volume 88.1 fl (81-99); Red Blood Count 4.63 M/mm3 (4.20-5.40); White Blood Count 5.6 K/mm3 (4.8-10.8)
[2024-02-04 19:39] LABS: Basophils # 0.1 K/mm3 (0-0.2); Basophils % 1.4 % (0.1-2.0); Eosinophils # 0.2 K/mm3 (0.0-0.4); Eosinophils % 3.5 % (0.1-12.0); Lymphocytes % 35.3 % (10-50); Mean Corpuscular HGB Conc 31.1 g/dL (31.8-35.4); Mean Platelet Volume 10.3 fl (7.4-10.4); Monocytes # 0.6 K/mm3 (0.1-1.0); Monocytes % 9.8 % (1.7-9.3); Neutrophils # 2.8 K/mm3 (1.8-7.8); Neutrophils % 49.8 % (37.0-80.0); Platelet Count 270 K/mm3 (142-424); Red Cell Distribution Width 12.4 % (11.5-17.5)
[2024-02-04 19:54] LABS: Monoscreen (Rapid) Negative (Negative)
[2024-02-04 20:22] LABS: HIV Combo NEGATIVE (Negative)
[2024-02-05 13:06] LABS: Coronavirus 19, PCR Not Detected (NotDetected); Influenza A, PCR Not Detected (NotDetected); Influenza B, PCR Not Detected (NotDetected)
[2024-02-06 03:49] LABS: HCV Ab Non Reactive (Non Reactive)
[2024-02-06 08:09] LABS: EBV Ab VCA, IgM <36.0 U/mL (0.0-35.9); EBV Nuclear Antigen Ab, IgG >600.0 U/mL (0.0-17.9)
== END 2024-02-04 23:59 | disposition home or self-care (01) ==
LOC: LAB.DROPOF 02-05 10:11
PROVIDERS: PCP Student in an Organized Health Care Education/Training Program; Visit Provider Student in an Organized Health Care Education/Training Program
DX: Z11.59 Encounter for screening for other viral diseases (principal); Z11.4 Encounter for screening for human immunodeficiency virus [HIV]; R05.9 Cough, unspecified; J02.9 Acute pharyngitis, unspecified
CPT/HCPCS: 85025; 86318; 86664; 86665; 86803; 87070; 87389; 87636

== ENCOUNTER 2024-03-26 12:23 | Emergency (ER) | payer MEDICAID, SELFPAY ==
[2024-03-26 12:32] VITALS: BP 134/99; PULSE 89; RESP 18; TEMP 37.2; O2SAT 100; BMI 26.1
--- NOTE | 2024-03-26 12:36 | ED_ITS ---
Discharge Plan Disposition Patient Disposition: Home, Self-Care Condition: Good Prescriptions Prescriptions: New Dificid 200 mg tablet 200 mg PO BID 10 Days Qty: 20 0RF vancomycin 125 mg capsule 125 mg PO QID 10 Days Qty: 40 0RF nitrofurantoin monohyd/m-cryst 100 mg capsule 100 mg PO BID 5 Days Qty: 10 0RF Rx Instructions: must administer with a meal/food No Action metoprolol succinate 50 mg tablet extended release 24 hr 50 mg PO DAILY sertraline 50 mg tablet See Rx Instructions .ROUTE .COMPLEX Qty: 30 5RF Dose Instruction: TAKE ONE TABLET BY MOUTH ONCE A DAY Rx Instructions: TAKE ONE TABLET BY MOUTH ONCE A DAY montelukast [Singulair] 10 mg tablet 10 mg PO DAILY Qty: 30 2RF fluticasone propionate [Flonase Allergy Relief] 50 mcg/actuation spray,suspension 2 spray intranasal DAILY Qty: 16 0RF Rx Instructions: administer into each nostril daily cholecalciferol (vitamin D3) [Vitamin D3] 125 mcg (5,000 unit) Tablet 125 mcg PO DAILY Referrals Follow up/Referrals: Dilshad Nunn MD [Primary Care Provider] - See instructions Activity Restrictions/Add. Instructions Additional Instructions/Restrictions: Follow-up with your PCP within 48 hours for recheck. If you have any continuing new or worsening signs or symptoms follow-up with your PCP sooner or return to the ER. Clinical Impressions Clinical Impression: C. difficile colitis Instructions Patient Instructions: DI for Diarrhea and Traveler's Diarrhea -- Adult, DI for Diarrhea and Traveler's Diarrhea -- Child, DI for Nausea -- Adult, DI for Nausea -- Child Print Language Print Language: [place] Discharge ED Provider: Manjeet Duenas General Adult HPI <ANDREW Gresham - Last Filed: 03/26/24 19:12> General Chief complaint: Nausea/Vomiting/Diarrhea Stated complaint: diarrhea, weakness, vomiting, body aches, chills Time Seen by Provider: 03/26/24 12:36 Mode of Arrival: Ambulatory Source of Information: Patient Limitations: No Limitations Description of Symptoms (Recalled from ER Triage Doc. by RN): Pt presents for evaluation of nausea and diarrhea x 5 days History of Present Illness HPI narrative: Patient presents for evaluation of diarrhea. Patient states that she has had 5 days of greater than 10 watery bowel movements. She started with viral symptoms including myalgias body aches but no cough chest pain. She is trying to stay hydrated with oral intake but as soon as she eats she is stimulated to go to the bathroom again. The stool is very watery with no blood or mucus. She denies current fever chills hemoptysis hematochezia melena nausea vomiting. Patient went 15 times yesterday. Related Data Home Medications ?Medication ?Instructions ?Recorded ?Confirmed metoprolol succinate 50 mg 50 mg PO DAILY 12/22/22 03/26/24 tablet,extended release 24 hr cholecalciferol (vitamin D3) 125 125 mcg PO DAILY 11/28/23 03/26/24 mcg (5,000 unit) tablet (Vitamin D3) Previous Rx's ?Medication ?Instructions ?Recorded montelukast 10 mg tablet 10 mg PO DAILY #30 tabs 05/19/22 (Singulair) fluticasone propionate 50 2 spray intranasal DAILY #16 grams 01/21/23 mcg/actuation nasal spray,suspension (Flonase Allergy Relief) sertraline 50 mg tablet See Rx Instructions .Route 12/28/23 .COMPLEX #30 tabs fidaxomicin 200 mg tablet (Dificid) 200 mg PO BID 10 days #20 tabs 03/26/24 nitrofurantoin 100 mg PO BID 5 days #10 caps 03/26/24 monohydrate/macrocrystals 100 mg capsule vancomycin 125 mg capsule 125 mg PO QID 10 days #40 caps 03/26/24 Allergies Allergy/AdvReac Type Severity Reaction Status Date / Time cephalexin (From Keflex) AdvReac Palpitation Verified 03/26/24 11:43 s [facility] <ANDREW Gresham - Last Filed: 03/26/24 19:12> [facility] Disclaimer: The information contained in this section may have been updated after the patient was seen, as this information can be updated by other users. Medical History (Reviewed 03/26/24 @ 12:06 by Carmel Bridges ([facility]), [employer]) Spontaneous miscarriage Vaginal bleeding in Mitral valve regurgitation Anxiety Family history of ovarian cancer maternal grandmother Family history of breast cancer paternal grandmother delivery delivered Dyspnea Surgical History (Reviewed 03/26/24 @ 12:06 by Carmel Bridges ([facility]), [employer]) History of laparoscopic cholecystectomy History of section x 2 Family History , [employer]) Substance abuse Diabetes Anemia Hyperlipidemia Heart attack FHx: mental illness Cancer Hypertension Thyroid disorder Stroke Asthma Social History , [employer]) Smoking Status: Never smoker alcohol intake: never substance use type: denies use current occupational status: employed and unemployed Travel in the last 8 weeks: Inside the [place] household members: spouse housing: house current occupational exposures/hazards: No Have you lived/traveled outside [place] in past 30 days?: No Contact w/someone who lives/traveled outside US past 30 days?: No Exposure to someone with infectious disease in past 14 days?: No Do you have a fever (greater than 100.4 F or 38 C)?: No Have you tested positive for COVID-19: No Exposed to someone with COVID-19 in past 14 days?: No Do you have a sore throat?: No Do you have a cough?: No Do you have any weakness?: No Do you have any diarrhea?: Yes Are you experiencing any unusual bleeding?: No Do you have any muscle aches/pain?: Yes Do you have any abdominal pain?: No Are you experiencing loss of taste or smell?: No Other Medical History Have you received the Flu Vaccine for this season: No Have you received the Pneumonia Vaccine: No <ANDREW Gresham - Last Filed: 03/26/24 19:12> ROS Obtained: Yes Systems reviewed as appropriate & no additional complaints except as documented Physical Exam <ANDREW Gresham - Last Filed: 03/26/24 19:12> General General appearance: alert and in no apparent distress Respiratory Respiratory exam: Present normal lung sounds bilaterally Cardiovascular Cardiovascular exam: Present regular rate Neurological Exam Neurological exam: Present alert and oriented X3 Medical Decision Making <ANDREW Gresham - Last Filed: 03/26/24 19:12> Medical Records Medical records reviewed: Yes I reviewed the patient's medical records. Screening: Per USPSTF and CDC recommendations, given the prevalence of disease in our region, it is our hospital?s policy to screen for HIV and viral Hepatitis for all patients aged 18 and over and those with ongoing risk factors. [place] Inquiry Pt receiving controlled substance: No Vital Signs: 03/26/24 12:32 03/26/24 16:00 Temperature 99.0 F 98.9 F Temperature Source Oral Oral Pulse Rate 78 Pulse Rate [Right] 89 Respiratory Rate 18 16 Blood Pressure 128/80 Blood Pressure [Right Arm] 134/99 H Blood Pressure Mean [Right Arm] 110 Blood Pressure Source Automatic Cuff Blood Pressure Source [Right Arm] Automatic Cuff Blood Pressure Position Sitting Blood Pressure Position [Right Arm] Sitting 02 Sat by Pulse Oximetry 100 Oxygen Delivery Method Room Air Nasal Cannula Room Air Lab Data Lab results reviewed: Yes I reviewed the patient's lab results. Lab Results 03/26/24 12:40: Stl Aeromonas (PCR) Not detected, Stl C. cayetanensis PCR Not detected, Stool Rotavirus (PCR) Not detected, Stl Adenov F 40/41 PCR Not detected, Stool Astrovirus (PCR) Not detected, Stool Campylobacter PCR Not detected, Stl C.difficile Tox PCR Detected A, Stool Cryptosporidium PCR Not detected, Stl E.coli Shiga Tox PCR Not detected, Stool E coli O157 PCR Not detected, Stl Enterotoxigenic E PCR Not detected, Stool EPEC (PCR) Not detected, Stool EAEC (PCR) Not detected, Stl E. histolytica PCR Not detected, Stool Giardia Lamblia PCR Not detected, Stool Salmonella PCR Not detected, Stool Sapovirus (PCR) Detected A, Stl P. shigelloides PCR Not detected, Stl Shigella/EIEC PCR Not detected, St Y.enterocolitica PCR Not detected, Stool Vibrio (PCR) Not detected, Stl Vibrio cholerae PCR Not detected, Stl Norovirus GI/GII PCR Not detected 03/26/24 12:52: Stool Occult Blood Positive A 03/26/24 13:25: WBC 6.2, RBC 4.72, Hgb 13.2, Hct 40.2, MCV 85.2, MCH 28.0, MCHC 32.8, RDW 12.8, Plt Count 282, MPV 10.0, Neut % (Auto) 59.0, Lymph % (Auto) 27.6, [place] % (Auto) 9.6 H, Eos % (Auto) 2.6, Baso % (Auto) 1.0, Neut # (Auto) 3.6, Lymph # (Auto) 1.7, [place] # (Auto) 0.6, Eos # (Auto) 0.2, Baso # (Auto) 0.1, PT 10.4, INR 0.92, Sodium 140, Potassium 3.7, Chloride 106, Carbon Dioxide 24, Anion Gap 13.7, BUN 17, Creatinine 0.70, Estimated Creat Clear 148, Estimated GFR 96, Est GFR ( Amer) 116, Glucose 95, Calcium 8.8, Magnesium 1.6, Total Bilirubin 0.3, AST 47 H, ALT 37, Alkaline Phosphatase 58, Total Protein 7.9, Albumin 4.7, Globulin 3.2, Albumin/Globulin Ratio 1.5, Lipase 96, Procalcitonin 0.045 03/26/24 13:39: Urine Color Yellow, Urine Appearance Clear, Urine pH 6.0, Ur Specific [place] >= 1.030, Urine Protein Negative, Urine Glucose (UA) Negative, Urine Ketones Trace, Urine Blood 2+ A, Urine Nitrate Negative, Urine Bilirubin Negative, Urine Urobilinogen 0.2, Ur Leukocyte Esterase Negative, Urine RBC Occasional, Urine WBC 3-5, Ur Squamous Epith Cells Occasional, Urine Bacteria 2+, Urine Mucus Trace, Urine HCG, Qual Negative 03/26/24 13:25 03/26/24 13:25 Orders (Tests/Meds): ED MEDICATIONS Discontinued Medications Generic Name Dose Route Start Last Admin Trade Name Freq PRN Reason Stop Dose Admin Lactated Ringer's 1,000 mls @ 999 mls/hr 03/26/24 12:39 03/26/24 13:09 Lactated Ringer's 1000 Ml Bag IV 03/26/24 13:39 999 mls/hr .Q1H1M ONE Administration Iopamidol 75 ml 03/26/24 14:14 03/26/24 14:14 Iopamidol-370 (76%);100ml Bottle IV 03/26/24 14:15 75 ml ONCE ONE Administration Promethazine HCl 25 mg 03/26/24 14:49 03/26/24 15:07 Promethazine Hcl 25mg/Ml 1ml Vial IV 03/26/24 14:50 25 mg ONCE ONE Administration Sodium Chloride 10 ml 03/26/24 14:14 03/26/24 14:14 Sodium Chloride 0.9% 10ml Syr (Rad Only) IV 04/25/24 14:13 10 ml NEEDED PRN Administration Maintain IV Site Sodium Chloride 25 ml 03/26/24 14:49 03/26/24 15:07 Sodium Chloride 0.9% 25ml Bag IV 03/26/24 14:50 25 ml ONCE ONE Administration ORDERS Category Date Time Status CT abdomen pelvis w con Stat Cat Scan 03/26/24 12:39 Completed CBC w/Auto Diff [Complete Blood Count Auto Diff] Stat Lab 03/26/24 13:25 Completed CMP [Comprehensive Metabolic Panel] Stat Lab 03/26/24 13:25 Completed Diarrhea 23 Panel, PCR Stat Lab 03/26/24 12:40 Completed INR [Prothrombin Time INR] Stat Lab 03/26/24 13:25 Completed Lipase Stat Lab 03/26/24 13:25 Completed Magnesium Stat Lab 03/26/24 13:25 Completed Occult Blood,Stool Stat Lab 03/26/24 12:52 Completed Procalcitonin Stat Lab 03/26/24 13:25 Completed UA [Urinalysis and Microscopic] Stat Lab 03/26/24 13:39 Completed Urine , HCG Qual. Stat Lab 03/26/24 13:39 Completed Urine Culture Stat Micro 03/26/24 13:39 Received Tissue Perfus/Sepsis Re-Eval Sepsis Re-Evaluation Performed: Yes Date Performed: 03/26/24 Time Performed: 19:12 Medical Decision Narrative: In summary patient is a 33-year-old female who presents to the emergency department for evaluation of 5 days of watery stool. Patient is normotensive at 134/99 pulse 89 with normal sinus rhythm on the bedside monitor breathing 18 times a minute satting at 100% on room air upon arrival, low-grade temperature at 99.0. Physical exam is remarkable for normal breath sounds soft abdomen and mild discomfort to palpation but no focal tenderness no rebound or guarding or rigidity and with hyperactive bowel sounds. Differential diagnosis includes neural bacterial gastroenteritis versus colitis etc. Initial workup will be conducted with hematologic labs CT scan abdomen pelvis diarrhea panel urinalysis. Initial interventions include crystalloid bolus and Tylenol for now. Initial workup reviewed by me and her hematologic labs are nonactionable including a negative procalcitonin however urinalysis shows 2+ of blood although the patient is on her period is nitrate and leukocyte Estrace negative and microscopic exam shows occasional red blood cells 3-5 white cells occasional epithelial cells and 2+ bacteria which could be consistent with a urinary tract infection although patient has no dysuria, her stool for occult blood is positive however again patient is on her period and likely reflects contamination but her diarrhea panel was positive for C. difficile and Sapovirus. Informal interpretation of her CT scan abdomen pelvis however shows pancolitis without evidence of stranding free fluid or perforation. Upon repeat evaluation patient is tolerating oral intake now and has decrease in her pain. Given this patient is appropriate for discharge with prescription for initially Dificid however her insurance did not cover it thus I have changed her to vancomycin 4 times daily and Macrobid for potential UTI and follow-up with her PCP within 48 hours for recheck. <Manjeet Duenas MD - Last Filed: 03/26/24 19:18> Vital Signs: 03/26/24 12:32 03/26/24 16:00 Temperature 99.0 F 98.9 F Temperature Source Oral Oral Pulse Rate 78 Pulse Rate [Right] 89 Respiratory Rate 18 16 Blood Pressure 128/80 Blood Pressure [Right Arm] 134/99 H Blood Pressure Mean [Right Arm] 110 Blood Pressure Source Automatic Cuff Blood Pressure Source [Right Arm] Automatic Cuff Blood Pressure Position Sitting Blood Pressure Position [Right Arm] Sitting 02 Sat by Pulse Oximetry 100 Oxygen Delivery Method Room Air Nasal Cannula Room Air Lab Data Lab Results 03/26/24 12:40: Stl Aeromonas (PCR) Not detected, Stl C. cayetanensis PCR Not detected, Stool Rotavirus (PCR) Not detected, Stl Adenov F 40/41 PCR Not detected, Stool Astrovirus (PCR) Not detected, Stool Campylobacter PCR Not detected, Stl C.difficile Tox PCR Detected A, Stool Cryptosporidium PCR Not detected, Stl E.coli Shiga Tox PCR Not detected, Stool E coli O157 PCR Not detected, Stl Enterotoxigenic E PCR Not detected, Stool EPEC (PCR) Not detected, Stool EAEC (PCR) Not detected, Stl E. histolytica PCR Not detected, Stool Giardia Lamblia PCR Not detected, Stool Salmonella PCR Not detected, Stool Sapovirus (PCR) Detected A, Stl P. shigelloides PCR Not detected, Stl Shigella/EIEC PCR Not detected, St Y.enterocolitica PCR Not detected, Stool Vibrio (PCR) Not detected, Stl Vibrio cholerae PCR Not detected, Stl Norovirus GI/GII PCR Not detected 03/26/24 12:52: Stool Occult Blood Positive A 03/26/24 13:25: WBC 6.2, RBC 4.72, Hgb 13.2, Hct 40.2, MCV 85.2, MCH 28.0, MCHC 32.8, RDW 12.8, Plt Count 282, MPV 10.0, Neut % (Auto) 59.0, Lymph % (Auto) 27.6, [place] % (Auto) 9.6 H, Eos % (Auto) 2.6, Baso % (Auto) 1.0, Neut # (Auto) 3.6, Lymph # (Auto) 1.7, [place] # (Auto) 0.6, Eos # (Auto) 0.2, Baso # (Auto) 0.1, PT 10.4, INR 0.92, Sodium 140, Potassium 3.7, Chloride 106, Carbon Dioxide 24, Anion Gap 13.7, BUN 17, Creatinine 0.70, Estimated Creat Clear 148, Estimated GFR 96, Est GFR ( Amer) 116, Glucose 95, Calcium 8.8, Magnesium 1.6, Total Bilirubin 0.3, AST 47 H, ALT 37, Alkaline Phosphatase 58, Total Protein 7.9, Albumin 4.7, Globulin 3.2, Albumin/Globulin Ratio 1.5, Lipase 96, Procalcitonin 0.045 03/26/24 13:39: Urine Color Yellow, Urine Appearance Clear, Urine pH 6.0, Ur Specific [place] >= 1.030, Urine Protein Negative, Urine Glucose (UA) Negative, Urine Ketones Trace, Urine Blood 2+ A, Urine Nitrate Negative, Urine Bilirubin Negative, Urine Urobilinogen 0.2, Ur Leukocyte Esterase Negative, Urine RBC Occasional, Urine WBC 3-5, Ur Squamous Epith Cells Occasional, Urine Bacteria 2+, Urine Mucus Trace, Urine HCG, Qual Negative Orders (Tests/Meds): ED MEDICATIONS Discontinued Medications Generic Name Dose Route Start Last Admin Trade Name Freq PRN Reason Stop Dose Admin Lactated Ringer's 1,000 mls @ 999 mls/hr 03/26/24 12:39 03/26/24 13:09 Lactated Ringer's 1000 Ml Bag IV 03/26/24 13:39 999 mls/hr .Q1H1M ONE Administration Iopamidol 75 ml 03/26/24 14:14 03/26/24 14:14 Iopamidol-370 (76%);100ml Bottle IV 03/26/24 14:15 75 ml ONCE ONE Administration Promethazine HCl 25 mg 03/26/24 14:49 03/26/24 15:07 Promethazine Hcl 25mg/Ml 1ml Vial IV 03/26/24 14:50 25 mg ONCE ONE Administration Sodium Chloride 10 ml 03/26/24 14:14 03/26/24 14:14 Sodium Chloride 0.9% 10ml Syr (Rad Only) IV 04/25/24 14:13 10 ml NEEDED PRN Administration Maintain IV Site Sodium Chloride 25 ml 03/26/24 14:49 03/26/24 15:07 Sodium Chloride 0.9% 25ml Bag IV 03/26/24 14:50 25 ml ONCE ONE Administration ORDERS Category Date Time Status CT abdomen pelvis w con Stat Cat Scan 03/26/24 12:39 Completed CBC w/Auto Diff [Complete Blood Count Auto Diff] Stat Lab 03/26/24 13:25 Completed CMP [Comprehensive Metabolic Panel] Stat Lab 03/26/24 13:25 Completed Diarrhea 23 Panel, PCR Stat Lab 03/26/24 12:40 Completed INR [Prothrombin Time INR] Stat Lab 03/26/24 13:25 Completed Lipase Stat Lab 03/26/24 13:25 Completed Magnesium Stat Lab 03/26/24 13:25 Completed Occult Blood,Stool Stat Lab 03/26/24 12:52 Completed Procalcitonin Stat Lab 03/26/24 13:25 Completed UA [Urinalysis and Microscopic] Stat Lab 03/26/24 13:39 Completed Urine , HCG Qual. Stat Lab 03/26/24 13:39 Completed Urine Culture Stat Micro 03/26/24 13:39 Received Medical Decision Narrative: In summary patient is a 33-year-old female who presents to the emergency department for evaluation of 5 days of watery stool. Patient is normotensive at 134/99 pulse 89 with normal sinus rhythm on the bedside monitor breathing 18 times a minute satting at 100% on room air upon arrival, low-grade temperature at 99.0. Physical exam is remarkable for normal breath sounds soft abdomen and mild discomfort to palpation but no focal tenderness no rebound or guarding or rigidity and with hyperactive bowel sounds. Differential diagnosis includes neural bacterial gastroenteritis versus colitis etc. Initial workup will be conducted with hematologic labs CT scan abdomen pelvis diarrhea panel urinalysis. Initial interventions include crystalloid bolus and Tylenol for now. Initial workup reviewed by me and her hematologic labs are nonactionable including a negative procalcitonin however urinalysis shows 2+ of blood although the patient is on her period is nitrate and leukocyte Estrace negative and microscopic exam shows occasional red blood cells 3-5 white cells occasional epithelial cells and 2+ bacteria which could be consistent with a urinary tract infection although patient has no dysuria, her stool for occult blood is positive however again patient is on her period and likely reflects contamination but her diarrhea panel was positive for C. difficile and Sapovirus. Informal interpretation of her CT scan abdomen pelvis however shows pancolitis without evidence of stranding free fluid or perforation. Upon repeat evaluation patient is tolerating oral intake now and has decrease in her pain. Given this patient is appropriate for discharge with prescription for initially Dificid however her insurance did not cover it thus I have changed her to vancomycin 4 times daily and Macrobid for potential UTI and follow-up with her PCP within 48 hours for recheck. I was consulted by the ABIOLA, and we discussed the complexity of the problems being addressed. I approved the treatment and management plan for this patient's care in the Emergency Department, thus performing a substantive portion of the medical decision making. Manjeet Duenas MD Critical Care <ANDREW Gresham - Last Filed: 03/26/24 19:12> Critical Care Time Critical Care Time: Yes Attestation: On 03/26/24, the high probability of a clinically significant, sudden or life threatening deterioration of the following system(s) required my full and direct attention, intervention and personal management. The time I documented below is in addition to time spent performing reported procedures but includes the following listed in this critical care notation. Total Time Total Critical Care Time: 35
--- NOTE | 2024-03-26 12:39 | CT_ITS ---
FINAL REPORT TECHNIQUE: Thin section axial images are obtained through the abdomen and pelvis after intravenous contrast. Reconstruction images were obtained from the axial data. Exam was performed using dose reduction techniques. CLINICAL HISTORY: Diarrhea for 5 days COMPARISON: None FINDINGS: LUNG BASES: Lung bases are clear. Heart size is normal. LIVER: Homogeneous. No focal lesion. GALLBLADDER/BILIARY SYSTEM: Gallbladder is absent. No biliary dilatation. SPLEEN: Unremarkable. PANCREAS: Unremarkable. ADRENALS: Unremarkable. KIDNEYS/URETERS/BLADDER: No hydronephrosis, renal mass, or renal stone. Urinary bladder incompletely distended. GI TRACT: No small bowel obstruction or dilatation. Long segment wall thickening of the colon with mild pericolonic inflammation consistent with infectious or inflammatory colitis. Appendix is not seen but no secondary signs of appendicitis. PELVIC ORGANS: Uterus and adnexa unremarkable for age. LYMPH NODES/RETROPERITONEUM/MESENTERY: No lymphadenopathy. No abdominal aortic aneurysm. ABDOMINAL WALL: The abdominal wall is intact. FREE FLUID: No ascites. BONES: No acute osseous abnormality. IMPRESSION: Long segment colonic wall thickening most consistent with infectious or inflammatory colitis. Reviewed, Interpreted and Dictated by America Kinney MD Transcribed by Sonya Pinzon Authenticated and [facility]
[2024-03-26 13:08] LABS: Adenovirus F 40/41, stool Not Detected (NotDetected); Astrovirus Not Detected (NotDetected); Campylobacter Not Detected (NotDetected); Cryptosporidium Not Detected (NotDetected); Cyclospora Cayetanesis Not Detected (NotDetected); Entamoeba histolytica Not Detected (NotDetected); Enteroaggregative E coli Not Detected (NotDetected); Enteropathogenic E coli Not Detected (NotDetected); Enterotoxigenic E coli Not Detected (NotDetected); Giardia lamblia Not Detected (NotDetected); Norovirus Not Detected (NotDetected); Plesimonas Shigalloides, PCR Not Detected (NotDetected); Rotavirus A Not Detected (NotDetected); Salmonella, PCR Not Detected (NotDetected); Shiga-like toxin E coli Not Detected (NotDetected); Shigella Enterovasive E coli Not Detected (NotDetected); Vibrio Cholerae Not Detected (NotDetected); Vibrio, PCR Not Detected (NotDetected); Yersinia Entercolitica, PCR Not Detected (NotDetected)
[2024-03-26] MEDS: LACTATED RINGERS 1000ML 1,000 ML 999 ML IV (13:09)
--- NOTE | 2024-03-26 13:13 | PC.NURSE ---
ROUNDED ON THE PT. THE PT VOICES THAT SHE DOES NOT NEED ANYTHING AT THIS TIME. CALL LIGHT IS WITHIN REACH OF THE PT.
--- NOTE | 2024-03-26 13:15 | PC.NURSE ---
Pt was told that we need a UA when she is able to give it. Health Safety Specialist at bedside getting labs
[2024-03-26 13:44] LABS: Basophils # 0.1 K/mm3 (0-0.2); Eosinophils # 0.2 K/mm3 (0.0-0.4); Eosinophils % 2.6 % (0.1-12.0); Hematocrit 40.2 % (37.0-47.0); Hemoglobin 13.2 g/dL (12.2-16.2); Lymphocytes # 1.7 K/mm3 (0.7-4.5); Lymphocytes % 27.6 % (10-50); Mean Corpuscular HGB Conc 32.8 g/dL (31.8-35.4); Mean Corpuscular Volume 85.2 fl (81-99); Monocytes # 0.6 K/mm3 (0.1-1.0); Monocytes % 9.6 % (1.7-9.3); Neutrophils # 3.6 K/mm3 (1.8-7.8); Platelet Count 282 K/mm3 (142-424); Red Blood Count 4.72 M/mm3 (4.20-5.40); Red Cell Distribution Width 12.8 % (11.5-17.5); White Blood Count 6.2 K/mm3 (4.8-10.8)
[2024-03-26 13:47] LABS: Microscopic, Urine URINE MICROSCOPIC (MICROSCOPIC)
[2024-03-26 13:51] LABS: Albumin Level 4.7 g/dl (3.5-5.0); Chloride 106 mmol/L (98-107); INR 0.92 (0.9-1.1); Potassium 3.7 mmoL/L (3.5-5.1); Prothrombin Time 10.4 seconds (10.1-12.5); Sodium 140 mmol/L (136-145)
[2024-03-26 13:54] LABS: Alanine Aminotransferase 37 U/L (12-78); Albumin/Globulin Ratio 1.5 (1.1-1.8); Alkaline Phosphatase 58 U/L (38-126); Anion Gap 13.7 mEq/L (5-15); Aspartate Amino Transferase 47 U/L (14-36); Bilirubin,Total 0.3 mg/dl (0.2-1.3); Blood Urea Nitrogen 17 mg/dl (7-17); Calcium 8.8 mg/dl (8.4-10.2); Carbon Dioxide 24 mmol/L (22.0-30.0); Creatinine Clearance Estimated 148 mL/min (50-200); Estimated Glomerular Filt Rate 96 ml/min (>60); GFR (African American) 116 ML/MIN (>60); Globulin 3.2 g/dL (1.3-3.2); Glucose 95 mg/dl (74-100); Lipase 96 U/L (23-300); Magnesium 1.6 mg/dl (1.6-2.3); Total Protein,Serum 7.9 g/dl (6.3-8.2)
[2024-03-26 14:01] LABS: Appearance,Urine CLEAR (Clear); Bilirubin,Urine Negative (Negative); Blood, Urine 2+ (Negative); Color,Urine YELLOW (Yellow); Glucose,Urine (UA) Negative (Negative); Ketones,Urine TRACE (Negative); Leukocyte Esterase,Urine Negative (Negative); Nitrate,Urine Negative (Negative); Protein,Urine Negative (Negative); Specific Gravity, Urine >= 1.030 (1.005-1.030); Urobilinogen,Urine 0.2 EU/dl (0.2)
[2024-03-26 14:02] LABS: Urine Pregnancy, HCG Qual. Negative (Negative)
--- NOTE | 2024-03-26 14:11 | PC.NURSE ---
PT TO CT
[2024-03-26] MEDS: SODIUM CHLORIDE 0.9% 10ML SYR (RAD ONLY) 10 ML IV (14:14)
[2024-03-26] MEDS: IOPAMIDOL-370 (76%);100ML BOTTLE 75 ML IV (14:14)
[2024-03-26 14:37] LABS: Occult Blood,Stool Positive (Negative)
[2024-03-26 14:38] LABS: Bacteria,Urine 2+ /lpf; RBC,Urine Occasional #/hpf (0-3); Squamous Epithelial Cell,Urine Occasional #/hpf (0-5)
[2024-03-26 14:39] LABS: Mucus,Urine Trace /lpf
--- NOTE | 2024-03-26 14:50 | PC.NURSE ---
Patient was given a blanket. Pt stated she didnt need anything else at this time.
[2024-03-26] MEDS: PROMETHAZINE HCL 25MG/ML 1ML VIAL 25 MG IV (15:07)
[2024-03-26] MEDS: SODIUM CHLORIDE 0.9% 25ML BAG 25 ML IV (15:07)
[2024-03-26 15:27] LABS: Procalcitonin 0.045 ng/mL (0.0-2.0)
--- NOTE | 2024-03-26 15:35 | PC.NURSE ---
ROUNDED ON THE PT. THE PT VOICES THAT SHE DOES NOT NEED ANYTHING AT THIS TIME. CALL LIGHT IS WITHIN REACH OF THE PT.
[2024-03-26 15:40] LABS: Sapovirus Detected (NotDetected)
[2024-03-26 15:41] LABS: Clostridium Difficile A/B, PCR Detected (NotDetected)
--- NOTE | 2024-03-26 15:42 | PC.NURSE ---
CRITICAL LAB, STOOL PANEL FOR C. DIFF AND SAPOVIRUS. PT NAME AND R/V. CATE SELLERS NOTIFIED
[2024-03-26 16:00] VITALS: BP 128/80; PULSE 78; RESP 16; TEMP 37.2; O2SAT 100
== END 2024-03-26 16:00 | disposition home or self-care (01) ==
PROVIDERS: Physician Assistant; Emergency Provider Emergency Medicine; PCP Family Medicine
DX: A04.72 Enterocolitis due to Clostridium difficile, not specified as recurrent (principal); R19.7 Diarrhea, unspecified; R53.1 Weakness; R11.0 Nausea; M79.10 Myalgia, unspecified site; R50.9 Fever, unspecified
CPT/HCPCS: 74177; 80053; 81001; 81025; 82272; 83690; 83735; 84145; 85025; 85610; 87086; 87507; 96361; 96374; 99291; G0328; J2550; J7120; Q9967